=== PATIENT | female | born 1980 | race Two or more races ===

== ENCOUNTER → 2016-08-05 | Outpatient (CLI) | payer OTHER ==
--- NOTE | 2016-08-05 16:17 | KCIC ---
PROCEDURE Cervical spine radiographs HISTORY Worsening neck pain COMPARISON None FINDINGS Two views of the neck utilizing soft tissue protocol are submitted. Cervical vertebral body stature and AP alignment are maintained. There are multiple clips of the inferior neck bilaterally. There is reversal of the lordotic curvature. Prevertebral soft tissue distance can be considered within normal limits. Epiglottis is somewhat poorly delineated on this exam. IMPRESSION Epiglottis is somewhat poorly delineated on this exam for accurate evaluation. There is nonspecific reversal of the lordotic curvature, could be associated with spasm. Electronically signed by: Sundar Royal MD (August 05, 2016 16:16:14)
== END | disposition home or self-care (01) ==
LOC: KCIC 14:35
PROVIDERS: ATTEND Hospitalist
DX: M54.2 Cervicalgia (principal)
CPT/HCPCS: 70360

== ENCOUNTER 2016-10-19 22:04 | Observation (INO) | payer OTHER ==
[~2016-10-19] VITALS: Ht 157.5 cm; Wt 75.3 kg
--- NOTE | 2016-10-19 22:19 | PHYS DOC ---
Past Medical History Additional Past Medical Histor: Thyroid disease;prior suicide attempt Past Surgical History: Cholecystectomy, Tonsillectomy Additional Past Surgical Histo: Thyroidectomy; eye surgery Smoking: Cigarettes Alcohol Use: Heavy Social History Narrative: lives alone Adult General HPI HPI Patient is a 36 year old female who presents with suicidal ideation, attempt and overdose. She took 5 ambien at approx 2030 PM and 3 shots of vodka (4 oz each). Prior suicide attempts. She admits to being depressed. LMP was yesterday. No recent illness or injury. She is followed by DR Russ. Review of Systems Review of Systems PATIENT NOT ANSWERING Physical Exam Physical Exam Constitutional: Well developed, well nourished, no acute distress, non-toxic appearance. Sedated but easily arousable HENT: Normocephalic, atraumatic, bilateral external ears normal, oropharynx moist, no oral exudates, nose normal. Eyes: PERRLA, EOMI, conjunctiva normal, no discharge. Neck: Normal range of motion, no tenderness, supple, no stridor. Cardiovascular:Heart rate regular rhythm, no murmur Lungs & Thorax: Bilateral breath sounds clear to auscultation Abdomen: Bowel sounds normal, soft, no tenderness, no masses, no pulsatile masses. Skin: Warm, dry, no erythema, no rash. Back: No tenderness, no CVA tenderness. Extremities: No tenderness, no cyanosis, no clubbing, ROM intact, no edema. Neurologic: Alert and oriented X 3; sedated but easily arousable, normal motor function, normal sensory function, no focal deficits noted. Psychologic: depressed Current Patient Data Vital Signs Vital Signs Date Time Temp Pulse Resp B/P (MAP) Pulse Ox O2 Delivery O2 Flow Rate FiO2 10/19/16 22:05 98.9 99 20 143/99 (114) 99 Room Air 98.9 Lab Values Laboratory Tests Test 10/19/16 21:46 10/19/16 22:28 10/19/16 22:34 POC Urine HCG, Qualitative Hcg negative (Negative) White Blood Count 9.5 x10^3/uL (4.0-11.0) Red Blood Count 4.03 x10^6/uL (3.50-5.40) Hemoglobin 12.4 g/dL (12.0-15.5) Hematocrit 37.0 % (36.0-47.0) Mean Corpuscular Volume 92 fL (79-100) Mean Corpuscular Hemoglobin 31 pg (25-35) Mean Corpuscular Hemoglobin Concent 34 g/dL (31-37) Red Cell Distribution Width 14.1 % (11.5-14.5) Platelet Count 322 x10^3/uL (140-400) Neutrophils (%) (Auto) 51 % (31-73) Lymphocytes (%) (Auto) 38 % (24-48) Monocytes (%) (Auto) 6 % (0-9) Eosinophils (%) (Auto) 3 % (0-3) Basophils (%) (Auto) 1 % (0-3) Neutrophils # (Auto) 4.9 x10^3uL (1.8-7.7) Lymphocytes # (Auto) 3.6 x10^3/uL (1.0-4.8) Monocytes # (Auto) 0.6 x10^3/uL (0.0-1.1) Eosinophils # (Auto) 0.3 x10^3/uL (0.0-0.7) Basophils # (Auto) 0.1 x10^3/uL (0.0-0.2) Sodium Level 147 mmol/L (136-145) H Potassium Level 3.0 mmol/L (3.5-5.1) L Chloride Level 110 mmol/L (98-107) H Carbon Dioxide Level 26 mmol/L (21-32) Anion Gap 11 (6-14) Blood Urea Nitrogen 13 mg/dL (7-20) Creatinine 0.7 mg/dL (0.6-1.0) Estimated GFR (Cockcroft-Gault) 95.2 BUN/Creatinine Ratio 19 (6-20) Glucose Level 101 mg/dL (70-99) H Calcium Level 8.3 mg/dL (8.5-10.1) L Total Bilirubin 0.1 mg/dL (0.2-1.0) L Aspartate Amino Transferase (AST) 14 U/L (15-37) L Alanine Aminotransferase (ALT) 19 U/L (14-59) Alkaline Phosphatase 114 U/L (46-116) Total Protein 7.1 g/dL (6.4-8.2) Albumin 3.6 g/dL (3.4-5.0) Albumin/Globulin Ratio 1.0 (1.0-1.7) Salicylates Level < 2.8 mg/dL (2.8-20.0) L Salicylate Last Dose Date Unknown Salicylate Last Dose Time Unknown Acetaminophen Level 3.60 mcg/ml (10-30) L Acetaminophen Last Dose Date Unknown Acetaminophen Last Dose Time Unknown Ethyl Alcohol Level 228 mg/dL (0-10) H Urine Collection Type Unknown Urine Color Yellow Urine Clarity Clear Urine pH 6.5 Urine Specific [place] 1.010 Urine Protein Negative mg/dL (NEG-TRACE) Urine Glucose (UA) Negative mg/dL (NEG) Urine Ketones (Stick) Negative mg/dL (NEG) Urine Blood Small (NEG) Urine Nitrite Negative (NEG) Urine Bilirubin Negative (NEG) Urine Urobilinogen Dipstick 0.2 mg/dL (0.2 mg/dL) Urine Leukocyte Esterase Negative (NEG) Urine RBC 3-5 /HPF (0-2) Urine WBC 1-4 /HPF (0-4) Urine Squamous Epithelial Cells Mod /LPF Urine Bacteria Few /HPF (0-FEW) Urine Opiates Screen Pos (NEG) Urine Methadone Screen Neg (NEG) Urine Barbiturates Neg (NEG) Urine Phencyclidine Screen Neg (NEG) Urine Amphetamine/Methamphetamine Neg (NEG) Urine Benzodiazepines Screen Neg (NEG) Urine Cocaine Screen Neg (NEG) Urine Cannabinoids Screen Neg (NEG) Urine Ethyl Alcohol Pos (NEG) Laboratory Tests 10/19/16 22:28 Laboratory Tests 10/19/16 22:28 EKG EKG EKG interpreted by myself. Normal sinus rhythm, heart rate 91. Increased and the QT interval. No ST elevation. Nonspecific ST changes. No Prior EKG to compare this to Course & Med Decision Making Course & Med Decision Making Pertinent Labs and Imaging studies reviewed. (See chart for details) Evaluated patient. She is too impaired for psychiatric assessment and transfer to psychiatric facility at this time due to the ambien and ethanol use. She will need monitoring tonight. She is managing airway; very sedated but easily awakens. Called hospitalist at 2215 PM (Dr Kumar) for admission. Will need 1:1 observation Dragon Disclaimer Dragon Disclaimer This electronic medical record was generated, in whole or in part, using a voice recognition dictation system. Departure Departure Impression: Primary Impression: Overdose Additional Impressions: Toxic effect of ethanol, intentional self-harm, initial encounter Overdose of benzodiazepine Suicidal ideation Disposition: ADMITTED INPATIENT Condition: STABLE Referrals: DANIEL POWERS (PCP) Problem Qualifiers VILMA PONCE MD Oct 19, 2016 22:19
[2016-10-19 22:57] LABS: BASO # 0.1 x10^3/uL (0.0-0.2); BASO % 1 % (0-3); EOS % 3 % (0-3); HEMOGLOBIN 12.4 g/dL (12.0-15.5); LYMPH # 3.6 x10^3/uL (1.0-4.8); LYMPH % 38 % (24-48); MEAN CORPUSCULAR HEMOGLOBIN 31 pg (25-35); MEAN CORPUSCULAR HGB CONC 34 g/dL (31-37); MEAN CORPUSCULAR VOLUME 92 fL (79-100); MONO % 6 % (0-9); NEUT % 51 % (31-73); PLATELET COUNT 322 x10^3/uL (140-400); RED BLOOD COUNT 4.03 x10^6/uL (3.50-5.40); RED CELL DISTRIBUTION WIDTH 14.1 % (11.5-14.5); WHITE BLOOD COUNT 9.5 x10^3/uL (4.0-11.0)
[2016-10-19 22:57] LABS: BILIRUBIN,URINE NEGATIVE (NEG); GLUCOSE,URINE NEGATIVE (NEG); NITRITE,URINE NEGATIVE (NEG); PH,URINE 6.5; PROTEIN,URINE NEGATIVE (NEG-TRACE); UROBILINOGEN,URINE 0.2 mg/dL (0.2 mg/dL)
[2016-10-19] MEDS ORDERED: ONDANSETRON PF 4 MG/2 ML VIAL. IV ONE (23:00)
[2016-10-19] MEDS ORDERED: IV NORMAL SALINE 1000ML BAG 1,000 ML IV SCH (23:00)
[2016-10-19] MEDS ORDERED: ONDANSETRON PF 4 MG/2 ML VIAL. IV PRN (23:00)
[2016-10-19 23:03] LABS: BARBITURATES NEG (NEG); BENZODIAZEPINES NEG (NEG); CANNABINOIDS NEG (NEG); COCAINE NEG (NEG); METHADONE NEG (NEG); OPIATES POS (NEG); PHENCYCLIDINE NEG (NEG)
[2016-10-19 23:09] LABS: ETHANOL 228 mg/dL (0-10)
[2016-10-19 23:11] LABS: ALBUMIN 3.6 g/dL (3.4-5.0); CALCIUM 8.3 mg/dL (8.5-10.1); CREATININE 0.7 mg/dL (0.6-1.0); GFR 95.2; TOTAL BILIRUBIN 0.1 mg/dL (0.2-1.0); TOTAL PROTEIN 7.1 g/dL (6.4-8.2)
[2016-10-19 23:13] LABS: BACTERIA,URINE FEW /HPF (0-FEW)
[2016-10-19 23:14] LABS: SQUAMOUS EPITHELIAL CELL,UR MOD /LPF
[2016-10-20 03:41] VITALS: BP 121/84
[2016-10-20] MEDS ORDERED: SERT100T PO (05:02)
[2016-10-20] MEDS ORDERED: ZOLP5TAB5 PO (05:02)
[2016-10-20] MEDS ORDERED: LEVO200T5 PO (05:02)
[2016-10-20] MEDS ORDERED: TOPI25TA7 PO (05:02)
[2016-10-20] MEDS ORDERED: PRED-220 PO (05:02)
--- NOTE | 2016-10-20 05:52 | ACF ---
Admission Forms Criteria DRUG INGESTION OR OVERDOSE Clinical Indications for Admission to Inpatient Care ( Place 'X' for any and all applicable criteria): Admission is indicated for severe toxicity as indicated by ANY ONE of the following(1)(2)(3)(4)(5)(6): [X ]I. Inpatient admission required rather than observation care (Also use Drug Ingestion or Overdose: Observation Care guideline as appropriate) because of ANY ONE of the following: [ ]a) Altered mental status that is severe or persistent [ ]b) Clinical finding (eg, metabolic acidosis, hypoglycemia, bradycardia) that is severe or persistent [ ]c) Toxic drug level that is persistent [X ]d) Psychiatric risk status not acceptable for outpatient management [ ]e) Continuous intravenous infusion of anticoagulation, platelet inhibitor, vasoactive, or antiarrhythmic medication (15)(16) [ ]f) Other condition, treatment or monitoring requiring inpatient admission [ ]II. Respiratory abnormalities [ ]III. Specific finding indicating severe and likely prolonged drug toxicity [ ]IV. Hemodynamic instability [ ]V. Dangerous arrhythmia [ ]. Hypertension requiring inpatient treatment Extended stay beyond goal length of stay may be needed for (4): [ ]a) Neurologic or respiratory compromise [ ]b) Hemodynamic instability [ ]c) Persistent toxic drug levels (25) [ ]d) Severe drug toxicities or complications [ ]e) Ongoing antidote treatment (eg, acetaminophen overdose)(5) [ ]f) Older patients(65 years or older) The original [employer] content created by [employer] has been revised. The portions of the content which have been revised are identified through the use of italic text or in bold, and [facility] has neither reviewed nor approved the modified material. All other unmodified content is copyright [employer] Please see references footnoted in the original [employer] edition 2016 Admission Criteria Met?: Yes KATHERIN MARTINS Oct 20, 2016 05:52
[2016-10-20] MEDS ORDERED: ALBUTEROL SULFATE 2.5 MG/3 ML NEBU. NEB PRN (06:45)
[2016-10-20] MEDS ORDERED: ACETAMINOPHEN 325 MG TABLET. PO PRN (06:45)
[2016-10-20] MEDS ORDERED: HYDROcodone/APAP 5/325MG 1 TAB TABLET PO PRN (06:45)
[2016-10-20] MEDS ORDERED: ONDANSETRON PF 4 MG/2 ML VIAL. IV PRN (06:45)
[2016-10-20] MEDS ORDERED: hydrALAZINE 20 MG/ML VIAL. IVP PRN (06:45)
[2016-10-20 07:00] VITALS: BP 152/104
[2016-10-20] MEDS ORDERED: IV NORMAL SALINE 1000ML BAG 1,000 ML IV ONE (07:00)
--- NOTE | 2016-10-20 07:22 | EKG ---
[facility] [address] [place] [address] Test Date: 2016-10-19 Test Time: 22:41:26 Pat Name: DEVIN MENA Department: Room: Gender: F Brick Wheeler: : 1980 Requested By: VILMA PONCE Order Number: [id number] Reading MD: Measurements Intervals [place] Rate: 91 P: 37 WA: 148 QRS: 74 QRSD: 92 T: 43 QT: 420 QTc: 519 Interpretive Statements SINUS RHYTHM PROLONGED QT NO SPECIFIC ECG ABNORMALITIES RI6.01 No previous ECG available for comparison
[2016-10-20] MEDS ORDERED: POTASSIUM CHLORIDE 20 MEQ TABLET.ER. PO ONE ×2 (09:15→12:00)
--- NOTE | 2016-10-20 09:16 | PDOC1 ---
History and Physical Date of Admission Date of Admission DATE: 10/20/16 TIME: 09:09 Identification/Chief Complaint Chief Complaint suicide attempt, intoxicated Problems: Source Source: Chart review, Patient History of Present Illness History of Present Illness Ms. Frederick, is a 36 year old female who presents with suicidal ideation, attempt and overdose. She this AM tells me "I just wanted to sleep" when I asked if she wanted to "sleep forever" she did not answer. reports of 12 oz vodka and 5 ambien, but her EtOH level would imply more EtOH than that for her size. She complains of neck and jaw and low back pain that is chronic, and disallows her to sleep. Prior suicide attempts reported in ER, she denies this to me now. She admits to being depressed. Past Medical History Cardiovascular: No pertinent hx Pulmonary: No pertinent hx Psych: Anxiety, Addictions, Depression Musculoskeletal: low back pain Family History Family History: No Significant Social History Smoke: No ALCOHOL: heavy Current Problem List Problem List Problems Medical Problems: (1) Overdose Status: Acute (2) Overdose of benzodiazepine Status: Acute (3) Suicidal ideation Status: Acute (4) Toxic effect of ethanol, intentional self-harm, initial encounter Status: Acute Problems: Current Medications Current Medications Current Medications Ondansetron HCl (Zofran) 4 mg 1X ONCE IV Last administered on 10/20/16 00:26 ; Start 10/19/16 at 23:00; Stop 10/19/16 at 23:01; Status DC Sodium Chloride 1,000 ml @ 1,000 mls/hr Q1H IV Last administered on 10/20/16 00:24; Start 10/19/16 at 23:00; Stop 10/19/16 at 23:59; Status DC Ondansetron HCl (Zofran) 4 mg PRN Q8HRS PRN IV NAUSEA/VOMITING; Start 10/19/16 at 23:00; Stop 10/20/16 at 07:00; Status DC Sodium Chloride 1,000 ml @ 75 mls/hr 1X ONCE IV Last administered on 07:15; Start 10/20/16 at 07:00; Stop 10/20/16 at 20:19 Acetaminophen (Tylenol) 325 mg PRN Q6HRS PRN PO MILD PAIN / TEMP; Start at 06:45 Acetaminophen/ Hydrocodone Bitart (Lortab 5/325) 1 tab PRN Q6HRS PRN PO MODERATE TO SEVERE PAIN; Start 10/20/16 at 06:45 Hydralazine HCl (Apresoline) 10 mg PRN Q4HRS PRN IVP ELEVATED BP, SEE COMMENTS ; Start 10/20/16 at 06:45 Ondansetron HCl (Zofran) 4 mg PRN Q8HRS PRN IV NAUSEA/VOMITING; Start 10/20/16 at 06:45 Albuterol Sulfate (Ventolin Neb Soln) 2.5 mg PRN Q4HRS PRN NEB SHORTNESS OF BREATH; Start 10/20/16 at 06:45 Active Scripts Active Reported Topiramate 25 Mg Tablet 1 Tab PO DAILY Levothyroxine Sodium 200 Mcg Tablet 225 Mcg PO DAILYAC Zoloft (Sertraline Hcl) 100 Mg Tablet 1 Tab PO DAILY Prednisone 10 Mg Tablet 10 Mg PO DAILYWBKFT 3 Days Take 4 tablets by mouth daily for 3 days, then taper down by 1 tablet every 3 days Zolpidem Tartrate 5 Mg Tablet 1 Tab PO QHS Allergies Allergies: Coded Allergies: NSAIDS (Non-Steroidal Anti-Inflamma (Verified Allergy, Intermediate, ) Penicillins (Verified Allergy, Intermediate, 10/19/16) ROS General: No: Chills, Night Sweats, Fatigue, Malaise, Appetite, Other PSYCHOLOGICAL ROS: YES: Depression, Irritablity, Sleep disturbances, No: Anxiety, Behavioral Disorder, Concentration difficultie, Decreased libido , Disorientation, Hallucinations, Hostility, Memory difficulties, Mood Swings, Obsessive thoughts, Other Eyes: No Blurry vision, No Decreased vision, No Double vision, No Dry eyes, No Excessive tearing, No Eye Pain, No Itchy Eyes, No Loss of vision, No Photophobia , No Scotomata, No Uses contacts, No Uses glasses, No Other HEENT: YES: Heacaches, No: Visual Changes, Hearing change, Nasal congestion, Nasal discharge, Oral lesions, Sinus pain, Sore Throat, Epistaxis, Sneezing, Snoring, Tinnitus, Vertigo, Vocal changes, Other Respiratory: No: Cough, Hemoptysis, Orthopnea, Pleuritic Pain, Shortness of breath, SOB with excertion, Sputum Changes, Stridor, Tachypnea, Wheezing, Other Cardiovascular: No Chest Pain, No Palpitations, No Orthopnea, No Paroxysmal Noc. Dyspnea, No Edema, No Lt Headedness, No Other Gastrointestinal: Yes Nausea, No Vomiting, No Abdominal Pain, No Diarrhea, No Constipation, No Melena, No Hematochezia, No Other Genitourinary: No Dysuria, No Frequency, No Incontinence, No Hematuria, No Retention, No Discharge, No Urgency, No Pain, No Flank Pain, No Other, No , No , No , No , No , No , No Musculoskeletal: Yes Joint Pain, Yes Joint Stiffness, Yes Pain In: (back pain, neck pain) Neurological: No Behavorial Changes, No Bowel/Bladder ControlChng, No Confusion , No Dizziness, No Gait Disturbance, No Headaches, No Impaired Coord/balance, No Memory Loss, No Numbness/Tingling, No Seizures, No Speech Problems, No Tremors, No Visual Changes, No Weakness, No Other Skin: No Dry Skin, No Eczema, No Hair Changes, No Lumps, No Mole Changes, No Mottling, No Nail Changes, No Pruritus, No Rash, No Skin Lesion Changes, No Other, No Acne Physical Exam General: Alert, Oriented X3, Cooperative, No acute distress HEENT: EOMI, Mucous membr. moist/pink Lungs: Normal air movement Heart: no gallops, no murmurs Extremities: No clubbing, No edema Skin: No rashes, No significant lesion Neuro: Normal speech Psych/Mental Status: Mental status NL, Mood NL Vitals Vitals Vital Signs Date Time Temp Pulse Resp B/P (MAP) Pulse Ox O2 Delivery O2 Flow Rate FiO2 10/20/16 07:00 98.1 92 20 152/104 (120) 98 Room Air 98.1 Labs Labs Laboratory Tests Test 10/19/16 21:46 10/19/16 22:28 10/19/16 22:34 Bedside Urine HCG, Qualitative Hcg negative (Negative) White Blood Count 9.5 x10^3/uL (4.0-11.0) Red Blood Count 4.03 x10^6/uL (3.50-5.40) Hemoglobin 12.4 g/dL (12.0-15.5) Hematocrit 37.0 % (36.0-47.0) Mean Corpuscular Volume 92 fL (79-100) Mean Corpuscular Hemoglobin 31 pg (25-35) Mean Corpuscular Hemoglobin Concent 34 g/dL (31-37) Red Cell Distribution Width 14.1 % (11.5-14.5) Platelet Count 322 x10^3/uL (140-400) Neutrophils (%) (Auto) 51 % (31-73) Lymphocytes (%) (Auto) 38 % (24-48) Monocytes (%) (Auto) 6 % (0-9) Eosinophils (%) (Auto) 3 % (0-3) Basophils (%) (Auto) 1 % (0-3) Neutrophils # (Auto) 4.9 x10^3uL (1.8-7.7) Lymphocytes # (Auto) 3.6 x10^3/uL (1.0-4.8) Monocytes # (Auto) 0.6 x10^3/uL (0.0-1.1) Eosinophils # (Auto) 0.3 x10^3/uL (0.0-0.7) Basophils # (Auto) 0.1 x10^3/uL (0.0-0.2) Sodium Level 147 mmol/L (136-145) Potassium Level 3.0 mmol/L (3.5-5.1) Chloride Level 110 mmol/L (98-107) Carbon Dioxide Level 26 mmol/L (21-32) Anion Gap 11 (6-14) Blood Urea Nitrogen 13 mg/dL (7-20) Creatinine 0.7 mg/dL (0.6-1.0) Estimated GFR (Cockcroft-Gault) 95.2 BUN/Creatinine Ratio 19 (6-20) Glucose Level 101 mg/dL (70-99) Calcium Level 8.3 mg/dL (8.5-10.1) Total Bilirubin 0.1 mg/dL (0.2-1.0) Aspartate Amino Transf (AST/SGOT) 14 U/L (15-37) Alanine Aminotransferase (ALT/SGPT) 19 U/L (14-59) Alkaline Phosphatase 114 U/L (46-116) Total Protein 7.1 g/dL (6.4-8.2) Albumin 3.6 g/dL (3.4-5.0) Albumin/Globulin Ratio 1.0 (1.0-1.7) Salicylates Level < 2.8 mg/dL (2.8-20.0) Salicylate Last Dose Date Unknown Salicylate Last Dose Time Unknown Acetaminophen Level 3.60 mcg/ml (10-30) Acetaminophen Last Dose Date Unknown Acetaminophen Last Dose Time Unknown Ethyl Alcohol Level 228 mg/dL (0-10) Urine Collection Type Unknown Urine Color Yellow Urine Clarity Clear Urine pH 6.5 Urine Specific [place] 1.010 Urine Protein Negative mg/dL (NEG-TRACE) Urine Glucose (UA) Negative mg/dL (NEG) Urine Ketones (Stick) Negative mg/dL (NEG) Urine Blood Small (NEG) Urine Nitrite Negative (NEG) Urine Bilirubin Negative (NEG) Urine Urobilinogen Dipstick 0.2 mg/dL (0.2 mg/dL) Urine Leukocyte Esterase Negative (NEG) Urine RBC 3-5 /HPF (0-2) Urine WBC 1-4 /HPF (0-4) Urine Squamous Epithelial Cells Mod /LPF Urine Bacteria Few /HPF (0-FEW) Urine Opiates Screen Pos (NEG) Urine Methadone Screen Neg (NEG) Urine Barbiturates Neg (NEG) Urine Phencyclidine Screen Neg (NEG) Urine Amphetamine/Methamphetamine Neg (NEG) Urine Benzodiazepines Screen Neg (NEG) Urine Cocaine Screen Neg (NEG) Urine Cannabinoids Screen Neg (NEG) Urine Ethyl Alcohol Pos (NEG) Laboratory Tests Test 10/19/16 21:46 10/19/16 22:28 10/19/16 22:34 Bedside Urine HCG, Qualitative Hcg negative (Negative) White Blood Count 9.5 x10^3/uL (4.0-11.0) Red Blood Count 4.03 x10^6/uL (3.50-5.40) Hemoglobin 12.4 g/dL (12.0-15.5) Hematocrit 37.0 % (36.0-47.0) Mean Corpuscular Volume 92 fL (79-100) Mean Corpuscular Hemoglobin 31 pg (25-35) Mean Corpuscular Hemoglobin Concent 34 g/dL (31-37) Red Cell Distribution Width 14.1 % (11.5-14.5) Platelet Count 322 x10^3/uL (140-400) Neutrophils (%) (Auto) 51 % (31-73) Lymphocytes (%) (Auto) 38 % (24-48) Monocytes (%) (Auto) 6 % (0-9) Eosinophils (%) (Auto) 3 % (0-3) Basophils (%) (Auto) 1 % (0-3) Neutrophils # (Auto) 4.9 x10^3uL (1.8-7.7) Lymphocytes # (Auto) 3.6 x10^3/uL (1.0-4.8) Monocytes # (Auto) 0.6 x10^3/uL (0.0-1.1) Eosinophils # (Auto) 0.3 x10^3/uL (0.0-0.7) Basophils # (Auto) 0.1 x10^3/uL (0.0-0.2) Sodium Level 147 mmol/L (136-145) Potassium Level 3.0 mmol/L (3.5-5.1) Chloride Level 110 mmol/L (98-107) Carbon Dioxide Level 26 mmol/L (21-32) Anion Gap 11 (6-14) Blood Urea Nitrogen 13 mg/dL (7-20) Creatinine 0.7 mg/dL (0.6-1.0) Estimated GFR (Cockcroft-Gault) 95.2 BUN/Creatinine Ratio 19 (6-20) Glucose Level 101 mg/dL (70-99) Calcium Level 8.3 mg/dL (8.5-10.1) Total Bilirubin 0.1 mg/dL (0.2-1.0) Aspartate Amino Transf (AST/SGOT) 14 U/L (15-37) Alanine Aminotransferase (ALT/SGPT) 19 U/L (14-59) Alkaline Phosphatase 114 U/L (46-116) Total Protein 7.1 g/dL (6.4-8.2) Albumin 3.6 g/dL (3.4-5.0) Albumin/Globulin Ratio 1.0 (1.0-1.7) Salicylates Level < 2.8 mg/dL (2.8-20.0) Salicylate Last Dose Date Unknown Salicylate Last Dose Time Unknown Acetaminophen Level 3.60 mcg/ml (10-30) Acetaminophen Last Dose Date Unknown Acetaminophen Last Dose Time Unknown Ethyl Alcohol Level 228 mg/dL (0-10) Urine Collection Type Unknown Urine Color Yellow Urine Clarity Clear Urine pH 6.5 Urine Specific [place] 1.010 Urine Protein Negative mg/dL (NEG-TRACE) Urine Glucose (UA) Negative mg/dL (NEG) Urine Ketones (Stick) Negative mg/dL (NEG) Urine Blood Small (NEG) Urine Nitrite Negative (NEG) Urine Bilirubin Negative (NEG) Urine Urobilinogen Dipstick 0.2 mg/dL (0.2 mg/dL) Urine Leukocyte Esterase Negative (NEG) Urine RBC 3-5 /HPF (0-2) Urine WBC 1-4 /HPF (0-4) Urine Squamous Epithelial Cells Mod /LPF Urine Bacteria Few /HPF (0-FEW) Urine Opiates Screen Pos (NEG) Urine Methadone Screen Neg (NEG) Urine Barbiturates Neg (NEG) Urine Phencyclidine Screen Neg (NEG) Urine Amphetamine/Methamphetamine Neg (NEG) Urine Benzodiazepines Screen Neg (NEG) Urine Cocaine Screen Neg (NEG) Urine Cannabinoids Screen Neg (NEG) Urine Ethyl Alcohol Pos (NEG) VTE Prophylaxis Ordered VTE Prophylaxis Devices: No VTE Pharmacological Prophylaxi: No Assessment/Plan Assessment/Plan suicide attempt major depression seek psychiatric care chronic back pain, neck pain, to right jaw pain, consult physiatry EtOH abuse, was intoxicated on admit hypernatremia, hypokalemia, PRESLEY ENNIS MD Oct 20, 2016 09:16
[2016-10-20] MEDS ORDERED: LIDOCAINE (700MG/PATCH) PATCH. TD SCH (09:45)
[2016-10-20] MEDS ORDERED: KETOROLAC TROMETHAMINE 30 MG/ML INJ. IV ONE (09:45)
[2016-10-20] MEDS: CYCLOBENZAPRINE 10 MG TABLET. PO PRN ×2 (09:46→16:46)
[2016-10-20] MEDS ORDERED: MULTIVIT INFUSN,ADULT 4,VIT K 10 ML, FOLIC ACID 1 MG, THIAMINE 100 MG in IV RINGERS,LAC... IV ONE (10:00)
[2016-10-20 11:00] VITALS: BP 138/90
[2016-10-20] MEDS: oxyCODONE/APAP 10/325 1 TAB TABLET PO PRN ×2 (12:21→16:47)
[2016-10-20] MEDS ORDERED: LORazepam 1 MG TABLET PO PRN (14:00)
[2016-10-20 15:00] VITALS: BP 108/60
[2016-10-20] MEDS ORDERED: LEVOTHYROXINE 112 MCG TABLET PO SCH (15:00)
[2016-10-20] MEDS ORDERED: TOPIRAMATE 25 MG TABLET. PO SCH (15:00)
[2016-10-20] MEDS ORDERED: predniSONE 10 MG TABLET PO SCH (15:00)
[2016-10-20] MEDS ORDERED: ZOLPIDEM 5 MG TABLET. PO SCH (21:00)
[2016-10-21] MEDS ORDERED: POTASSIUM CHLORIDE 20 MEQ TABLET.ER. PO SCH (08:00)
[2016-10-21] MEDS ORDERED: SERTRALINE 50 MG TABLET. PO SCH (09:00)
== END 2016-10-20 19:20 | disposition home or self-care (01) ==
LOC: ER 22:04 → ED HOLD 22:35 → 5 NORTH 10-20 02:30
PROVIDERS: ADMIT Internal Medicine; ATTEND Internal Medicine
DX: T42.4X2A Poisoning by benzodiazepines, intentional self-harm, initial encounter (principal); T51.0X2A Toxic effect of ethanol, intentional self-harm, initial encounter; R45.851 Suicidal ideations; G89.29 Other chronic pain; F32.9 Major depressive disorder, single episode, unspecified; F41.9 Anxiety disorder, unspecified; E87.0 Hyperosmolality and hypernatremia; E87.6 Hypokalemia; Y92.89 Other specified places as the place of occurrence of the external cause; Z91.5 Personal history of self-harm; Z87.891 Personal history of nicotine dependence
CPT/HCPCS: 36415; 80053; 80329; 81001; 81025; 85027; 93005; 94250; 94760; 96361; 96365; 96375; 99285; A9153; G0378; G0480; G0481; J2405; J3411; J3490; J7030; J7120; G0379

== ENCOUNTER 2018-04-27 16:53 | Inpatient (IN) | payer SELFPAY ==
[~2018-04-27] VITALS: Ht 170.2 cm; Wt 77.2 kg
[~2018-04-27 16:53] MED LIST: HYDR-2761 PO; LEVO200T5 PO; PRED-220 PO; SERT100T PO; TOPI25TA7 PO; ZOLP5TAB5 PO
[2018-04-27] MEDS ORDERED: MULTIVIT INFUSN,ADULT 4,VIT K 10 ML, THIAMINE INJ 100 MG, FOLIC ACID INJ 1 MG in IV NOR... IV SCH (17:00)
[2018-04-27 17:14] LABS: BASO % 1 % (0-3); EOS # 0.2 x10^3/uL (0.0-0.7); EOS % 3 % (0-3); HEMOGLOBIN 12.8 g/dL (12.0-15.5); LYMPH # 3.4 x10^3/uL (1.0-4.8); LYMPH % 48 % (24-48); MEAN CORPUSCULAR HEMOGLOBIN 29 pg (25-35); MEAN CORPUSCULAR HGB CONC 33 g/dL (31-37); MEAN CORPUSCULAR VOLUME 89 fL (79-100); MONO # 0.5 x10^3/uL (0.0-1.1); MONO % 8 % (0-9); NEUT # 2.8 x10^3uL (1.8-7.7); NEUT % 40 % (31-73); PLATELET COUNT 240 x10^3/uL (140-400); RED CELL DISTRIBUTION WIDTH 15.5 % (11.5-14.5)
[2018-04-27 17:23] LABS: PROTHROMBIN TIME PATIENT 12.8 SEC (11.7-14.0)
[2018-04-27 17:28] LABS: ALBUMIN 3.5 g/dL (3.4-5.0); CALCIUM 8.3 mg/dL (8.5-10.1); CREATININE 0.9 mg/dL (0.6-1.0); GFR 70.5; MAGNESIUM 2.3 mg/dL (1.8-2.4); TOTAL BILIRUBIN 0.4 mg/dL (0.2-1.0)
[2018-04-27] MEDS ORDERED: IV NORMAL SALINE 1000ML BAG 1,000 ML IV ONE ×2 (17:30→18:15)
[2018-04-27 17:31] LABS: POTASSIUM 2.7 mmol/L (3.5-5.1)
[2018-04-27 17:38] LABS: BILIRUBIN,URINE NEGATIVE (NEG); CLARITY,URINE CLEAR; COLOR,URINE YELLOW; NITRITE,URINE NEGATIVE (NEG); PH,URINE 6.5; PROTEIN,URINE NEGATIVE (NEG-TRACE); UROBILINOGEN,URINE 0.2 mg/dL (0.2 mg/dL)
[2018-04-27 17:38] LABS: ETHANOL 362 mg/dL (0-10); SALIC < 2.8 mg/dL (2.8-20.0)
[2018-04-27 17:39] LABS: ACETAMIN < 2 mcg/ml (10-30)
[2018-04-27 17:51] LABS: AMORPHOUS SEDIMENT,UR PRESENT /HPF; BACTERIA,URINE 0 /HPF (0-FEW); RBC,URINE 0 /HPF (0-2); SQUAMOUS EPITHELIAL CELL,UR OCC /LPF; WBC,URINE OCC /HPF (0-4)
[2018-04-27 17:53] LABS: AMPHETAMINE/METHAMPHETAMINE NEG (NEG); BARBITURATES NEG (NEG); BENZODIAZEPINES POS (NEG); CANNABINOIDS NEG (NEG); COCAINE NEG (NEG); METHADONE NEG (NEG); OPIATES NEG (NEG); PHENCYCLIDINE NEG (NEG)
[2018-04-27] MEDS: POTASSIUM CHLORIDE 10MEQ 100 ML IV SCH ×4 (17:58→23:00)
--- NOTE | 2018-04-27 18:26 | PHYS DOC ---
Past Medical History Past Medical History: Anxiety, Depression, Hypothyroid, Other Additional Past Medical Histor: Thyroid disease;prior suicide attempt, PTSD Past Surgical History: Cholecystectomy, Tonsillectomy Additional Past Surgical Histo: Thyroidectomy; eye surgery, GASTRIC SLEEVE Alcohol Use: Heavy Drug Use: Benzodiazepine Adult General Chief Complaint Chief Complaint: OVERDOSE HPI HPI Patient is a 38 year old female who presents with suicide attempt. Patient called EMS/911 after taking she reports 20 Seroquel 300 mg tablets as well as drinking an unknown amount of alcohol. EMS brought the pill bottle with her and there were 12 tablets missing from the bottle in the emergency department. Patient's history is limited due to decreased mental status.[] Review of Systems Review of Systems Unable to obtain due to decreased mental status All other systems were reviewed and found to be within normal limits, except as documented in this note. Current Medications Current Medications Current Medications Medications (Trade) Dose Ordered Sig/Mauricio Start Time Stop Time Status Last Admin Dose Admin Multivitamins 10 ml/Thiamine HCl 100 mg/Folic Acid 1 mg/Sodium Chloride 1,011.2 ml @ 1,000 mls/ hr Q1H 04/27/18 17:00 04/27/18 17:34 DC 04/27/18 17:32 1,000 MLS/HR Potassium Chloride/Water 100 ml @ 100 mls/hr Q1H 04/27/18 17:45 04/27/18 21:44 04/27/18 17:58 100 MLS/HR Sodium Chloride 1,000 ml @ 125 mls/hr 1X ONCE 04/27/18 18:15 04/28/18 02:14 04/27/18 18:14 125 MLS/HR Allergies Allergies Allergies Coded Allergies Type Severity Reaction Last Updated Verified NSAIDS (Non-Steroidal Anti-Inflamma Allergy Intermediate 10/19/16 Yes Penicillins Allergy Intermediate 10/19/16 Yes Physical Exam Physical Exam Constitutional: Well developed, well nourished, decreased responsiveness, protecting her airway. [] HENT: Normocephalic, atraumatic, bilateral external ears normal, oropharynx moist, no oral exudates, nose normal. [] Eyes: PERRLA, EOMI, conjunctiva normal, no discharge. [] Neck: Normal range of motion, no tenderness, supple, no stridor. [] Cardiovascular:Heart rate is tachycardic with a regular rhythm, no murmur [] Lungs & Thorax: Bilateral breath sounds clear to auscultation [] Abdomen: Bowel sounds normal, soft, no tenderness, no masses, no pulsatile masses. [] Skin: Warm, dry, no erythema, no rash. [] Back: No tenderness, no CVA tenderness. [] Extremities: No tenderness, no cyanosis, no clubbing, ROM intact, no edema. [] Neurologic: Sleepy, moves all 4 extremities. [] Psychologic: Affect flat, judgment poor Current Patient Data Vital Signs Vital Signs Date Time Temp Pulse Resp B/P (MAP) Pulse Ox O2 Delivery O2 Flow Rate FiO2 04/27/18 18:27 99 16 106/68 (81) 100 Room Air 04/27/18 17:04 96.5 96.5 Lab Values Laboratory Tests Test 04/27/18 17:00 04/27/18 17:20 04/27/18 17:32 White Blood Count 7.0 x10^3/uL (4.0-11.0) Red Blood Count 4.40 x10^6/uL (3.50-5.40) Hemoglobin 12.8 g/dL (12.0-15.5) Hematocrit 39.0 % (36.0-47.0) Mean Corpuscular Volume 89 fL (79-100) Mean Corpuscular Hemoglobin 29 pg (25-35) Mean Corpuscular Hemoglobin Concent 33 g/dL (31-37) Red Cell Distribution Width 15.5 % (11.5-14.5) H Platelet Count 240 x10^3/uL (140-400) Neutrophils (%) (Auto) 40 % (31-73) Lymphocytes (%) (Auto) 48 % (24-48) Monocytes (%) (Auto) 8 % (0-9) Eosinophils (%) (Auto) 3 % (0-3) Basophils (%) (Auto) 1 % (0-3) Neutrophils # (Auto) 2.8 x10^3uL (1.8-7.7) Lymphocytes # (Auto) 3.4 x10^3/uL (1.0-4.8) Monocytes # (Auto) 0.5 x10^3/uL (0.0-1.1) Eosinophils # (Auto) 0.2 x10^3/uL (0.0-0.7) Basophils # (Auto) 0.0 x10^3/uL (0.0-0.2) Prothrombin Time 12.8 SEC (11.7-14.0) Prothrombin Time INR 1.0 (0.8-1.1) Sodium Level 146 mmol/L (136-145) H Potassium Level 2.7 mmol/L (3.5-5.1) *L Chloride Level 106 mmol/L (98-107) Carbon Dioxide Level 24 mmol/L (21-32) Anion Gap 16 (6-14) H Blood Urea Nitrogen 10 mg/dL (7-20) Creatinine 0.9 mg/dL (0.6-1.0) Estimated GFR (Cockcroft-Gault) 70.5 BUN/Creatinine Ratio 11 (6-20) Glucose Level 136 mg/dL (70-99) H Lactic Acid Level 4.2 mmol/L (0.4-2.0) *H Calcium Level 8.3 mg/dL (8.5-10.1) L Magnesium Level 2.3 mg/dL (1.8-2.4) Total Bilirubin 0.4 mg/dL (0.2-1.0) Aspartate Amino Transferase (AST) 54 U/L (15-37) H Alanine Aminotransferase (ALT) 123 U/L (14-59) H Alkaline Phosphatase 110 U/L (46-116) Total Protein 7.0 g/dL (6.4-8.2) Albumin 3.5 g/dL (3.4-5.0) Albumin/Globulin Ratio 1.0 (1.0-1.7) Thyroid Stimulating Hormone (TSH) 2.701 uIU/mL (0.358-3.74) Salicylates Level < 2.8 mg/dL (2.8-20.0) L Salicylate Last Dose Date Unk Salicylate Last Dose Time Unk Acetaminophen Level < 2 mcg/ml (10-30) L Acetaminophen Last Dose Date Unk Acetaminophen Last Dose Time Unk Ethyl Alcohol Level 362 mg/dL (0-10) H Urine Color Yellow Urine Clarity Clear Urine pH 6.5 Urine Specific [place] 1.010 Urine Protein Negative mg/dL (NEG-TRACE) Urine Glucose (UA) Negative mg/dL (NEG) Urine Ketones (Stick) Negative mg/dL (NEG) Urine Blood Negative (NEG) Urine Nitrite Negative (NEG) Urine Bilirubin Negative (NEG) Urine Urobilinogen Dipstick 0.2 mg/dL (0.2 mg/dL) Urine Leukocyte Esterase Negative (NEG) Urine RBC 0 /HPF (0-2) Urine WBC Occ /HPF (0-4) Urine Squamous Epithelial Cells Occ /LPF Urine Amorphous Sediment Present /HPF Urine Bacteria 0 /HPF (0-FEW) Urine Mucus Slight /LPF Urine Opiates Screen Neg (NEG) Urine Methadone Screen Neg (NEG) Urine Barbiturates Neg (NEG) Urine Phencyclidine Screen Neg (NEG) Urine Amphetamine/Methamphetamine Neg (NEG) Urine Benzodiazepines Screen Pos (NEG) Urine Cocaine Screen Neg (NEG) Urine Cannabinoids Screen Neg (NEG) Urine Ethyl Alcohol Pos (NEG) POC Urine HCG, Qualitative Hcg negative (Negative) Laboratory Tests 04/27/18 17:00 Laboratory Tests 04/27/18 17:00 EKG EKG EKG shows a sinus tach at 124 bpm, normal axis, no ST elevation, flipped T waves anteriorly and inferiorly[] Radiology/Procedures Radiology/Procedures [] Course & Med Decision Making Course & Med Decision Making Pertinent Labs and Imaging studies reviewed. (See chart for details) ED course: Patient arrived, was placed in bed, in tolerated exam well. Patient was given 2 L of IV fluid including one of those liters being a "banana bag" due to concerns of alcohol use/abuse. She was noted to be hypokalemic and so potassium supplementation was ordered via the IV along with additional fluids given her elevated lactate. Consultation was made with the hospitalist service for admission. Medical decision making: Patient does not appear to have an elevated QTC despite the Seroquel overdose. However her alcohol is significantly elevated and so do not feel that she would be medically cleared in a timely manner from the emergency department so hospitalist service was consult for admission and they graciously accepted.[] Dragon Disclaimer Dragon Disclaimer This electronic medical record was generated, in whole or in part, using a voice recognition dictation system. Departure Departure Impression: Primary Impression: Overdose Additional Impressions: Suicide attempt Lactic acidosis Hypokalemia Disposition: ADMITTED INPATIENT Admitting Physician: Beatriz Allen Condition: GUARDED Referrals: NO PCP (PCP) Problem Qualifiers Primary Impression: Overdose Encounter type: initial encounter Injury intent: intentional self-harm Qualified Codes: T50.902A - Poisoning by unspecified drugs, medicaments and biological substances, intentional self-harm, initial encounter DENIA SHIPMAN DO Apr 27, 2018 18:26
[2018-04-27] MEDS ORDERED: ONDANSETRON PF 4 MG/2 ML VIAL. IV PRN (19:00)
--- NOTE | 2018-04-27 19:22 | EKG ---
[facility] [address] [place] [address] Test Date: 2018-04-27 Test Time: 17:07:46 Pat Name: DEVIN MENA Department: Room: 536 1 Gender: F Circulation Tender: : 1980 Requested By: DENIA SHIPMAN Order Number: [id number] Reading MD: Gregorio Gamboa MD Measurements Intervals [place] Rate: 123 P: -59 NV: 110 QRS: 75 QRSD: 90 T: -18 QT: 320 QTc: 463 Interpretive Statements SINUS TACHYCARDIA BASELINE ARTIFACT CANNOT RULE OUT LATERAL ISCHEMIA. Electronically Signed On 05-04-2018 9:05:41 STRIPPER APPRENTICE by Gregorio Gamboa MD
--- NOTE | 2018-04-27 19:30 | NUR ---
The patient, DEVIN MENA, 38 y/o, F admitted by APRIL WOODS III, DO, was given written information regarding hospital policies, unit procedures and contact persons. Valuables were checked and left in the nursing station due to patient suicide ideation. Patient has been sleeping since she arrived from ED,therefore she was unable to answer some admission questions. The nurse did the much she could on assessments. .
[2018-04-27 20:00] VITALS: BP 117/85
[2018-04-27 23:00] VITALS: BP 100/64
[2018-04-28] MEDS: IV NORMAL SALINE 1000ML BAG 1,000 ML IV SCH ×4 (01:40→16:24)
[2018-04-28] MEDS ORDERED: LORazepam 1 MG TABLET PO PRN ×2 (02:45)
[2018-04-28 03:00] VITALS: BP 121/70
[2018-04-28 06:43] LABS: BASO % 0 % (0-3); EOS # 0.2 x10^3/uL (0.0-0.7); EOS % 3 % (0-3); HEMATOCRIT 31.3 % (36.0-47.0); HEMOGLOBIN 10.5 g/dL (12.0-15.5); LYMPH # 2.1 x10^3/uL (1.0-4.8); LYMPH % 29 % (24-48); MEAN CORPUSCULAR HEMOGLOBIN 30 pg (25-35); MEAN CORPUSCULAR HGB CONC 34 g/dL (31-37); MEAN CORPUSCULAR VOLUME 89 fL (79-100); MONO # 0.5 x10^3/uL (0.0-1.1); MONO % 7 % (0-9); NEUT # 4.3 x10^3uL (1.8-7.7); NEUT % 61 % (31-73); PLATELET COUNT 200 x10^3/uL (140-400); RED BLOOD COUNT 3.52 x10^6/uL (3.50-5.40); RED CELL DISTRIBUTION WIDTH 15.5 % (11.5-14.5); WHITE BLOOD COUNT 7.1 x10^3/uL (4.0-11.0)
[2018-04-28 07:08] LABS: ALBUMIN 2.7 g/dL (3.4-5.0); ALBUMIN/GLOBULIN RATIO 0.9 (1.0-1.7); CALCIUM 7.6 mg/dL (8.5-10.1); CREATININE 0.6 mg/dL (0.6-1.0); GFR 112.5; POTASSIUM 3.4 mmol/L (3.5-5.1); TOTAL BILIRUBIN 0.6 mg/dL (0.2-1.0); TOTAL PROTEIN 5.8 g/dL (6.4-8.2)
[2018-04-28 07:20] VITALS: BP 131/83
[2018-04-28] MEDS: MULTIVIT INFUSN,ADULT 4,VIT K 10 ML, THIAMINE INJ 100 MG, FOLIC ACID INJ 1 MG in IV NOR... IV SCH (08:20)
[2018-04-28 11:02] VITALS: BP 110/67
--- NOTE | 2018-04-28 12:55 | HP ---
ADMIT DATE: 04/28/2018 CHIEF COMPLAINT: Overdose. HISTORY OF PRESENT ILLNESS: The patient is a pleasant 38-year-old female who took 20 Seroquel. She called 911. She also was drunk. She got to the ER with an alcohol level of above 300. We actually only discovered 12 pills missing, but she states she took 20. Nevertheless, I discussed the case with the ER physician. The patient is very sedated, acting, she is also tachycardic. We have consulted and notified the Poison Control Center. I have agreed to admit the patient. We plan to get her stabilized and then get her to an inpatient psych unit. PAST MEDICAL HISTORY: Depression, anxiety, hypothyroidism, cholecystectomy, tonsillectomy, bipolar, hypothyroidism, eye surgery and gastric sleeve. ALLERGIES: NSAIDS. FAMILY HISTORY: Depression. SOCIAL HISTORY: She does not drink, smoke or take drugs. MEDICATIONS: Reviewed. She is on 4 including Zoloft, Ambien, Synthroid and Keppra. REVIEW OF SYSTEMS: Unable to obtain, the patient is too confused. PHYSICAL EXAMINATION: VITAL SIGNS: Temperature 97, pulse 110, respirations 18, blood pressure 117/85, O2 sat 97% on room air. GENERAL: She is sleeping. She tries to wake her up, but she is very confused. She mumbles a few words and then goes back to sleep. HEART: Tachycardic, S1, S2. LUNGS: Clear. ABDOMEN: Soft. EXTREMITIES: No edema. SKIN: No rash. ENDOCRINE: No thyromegaly. LYMPHATICS: No cervical nodes. HEMATOPOIETIC: No bruising. LABORATORY DATA: Hematology is normal. Electrolytes: Sodium 146, potassium 3.4, chloride 110, bicarbonate 26, BUN 10, creatinine 0.9, glucose 136. Lactic acid 4.2. ASSESSMENT AND PLAN: Ingestion secondary to depression with suicide attempt and incidental finding of hypokalemia and anemia. The patient has been admitted. We are consulting the psychiatric assessment team. Replace her electrolytes. IV fluids. Cardiac monitoring. PROGNOSIS: Guarded. APRIL WOODS DO DR: INDU/phyllis JOB#: [id number] / [id number]
[2018-04-28 15:06] VITALS: BP 137/89
--- NOTE | 2018-04-28 15:54 | NUR ---
ESTELA phoned the PAT team for SI assessment. Efra will come in to see pt tomorrow morning. Addendum: 04/29/18 at 1244 by HILDA PALMER Pt was evaluated by Efra. Pt will f/u with [facility] services. Pt is not SI and 1:1 can be discontinued. THANH ARCHER.
[2018-04-28 19:00] VITALS: BP 132/92
[2018-04-28 22:59] VITALS: BP 143/95
[2018-04-29 03:00] VITALS: BP 131/85
[2018-04-29 07:00] VITALS: BP 121/80
[2018-04-29] MEDS: MULTIVIT INFUSN,ADULT 4,VIT K 10 ML, THIAMINE INJ 100 MG, FOLIC ACID INJ 1 MG in IV NOR... IV SCH (08:31)
[2018-04-29] MEDS ORDERED: HYDROcodone/APAP 5/325MG 1 TAB TABLET PO PRN (10:30)
[2018-04-29] MEDS ORDERED: HALOPERIDOL LACTATE 5 MG/ML VIAL. IVP ONE (10:30)
[2018-04-29] MEDS ORDERED: HALOPERIDOL LACTATE 5 MG/ML VIAL. IVP PRN (10:30)
[2018-04-29 11:05] VITALS: BP 128/87
--- NOTE | 2018-04-29 12:33 | PDOC ---
PROGRESS NOTES Chief Complaint Chief Complaint SI, OP on seroquel, alcohol intoxication History of Present Illness History of Present Illness Patient was seen and examined at the bedside this morning. She is doing well, not endorsing SI anymore. She has a good appetite and ate her breakfast this morning. She is prepared to discharge and requires a cab pass for transportation. Vitals Vitals Vital Signs Date Time Temp Pulse Resp B/P (MAP) Pulse Ox O2 Delivery O2 Flow Rate FiO2 04/29/18 11:05 97.9 97 16 128/87 (101) 93 Room Air 97.9 Physical Exam General: Alert, Oriented X3, Cooperative Heart: Regular rate Lungs: Clear Abdomen: Normal bowel sounds Extremities: No clubbing Skin: No rashes, No breakdown Review of Systems Review of Systems Heart: denies chest pain Lung: denies soa Integument: denies rash, itching Assessment and Plan Assessmemt and Plan Assessment: 1. Hypokalemia 2. Lactic acidosis 3. Suicide attempt with Seroquel 4. Alcohol abuse 5. Hypothyroidism Plan: 1. Rx: Zoloft 50 mg #30 for depression 2. Rx: Seroquel 300mg #10 for sleep aid 3. Rx: Synthroid 225mg # 50 for hypothyroidism 4. D/C 1-to-1 5. Manolo to discharge' 6. Follow up at [facility] Problems Medical Problems: (1) Hypokalemia Status: Acute (2) Lactic acidosis Status: Acute (3) Suicide attempt Status: Acute Comment Review of Relevant I have reviewed the following items kirby (where applicable) has been applied. Labs Laboratory Tests Test 04/27/18 17:00 04/27/18 17:20 04/27/18 17:32 04/27/18 20:50 White Blood Count 7.0 x10^3/uL (4.0-11.0) Red Blood Count 4.40 x10^6/uL (3.50-5.40) Hemoglobin 12.8 g/dL (12.0-15.5) Hematocrit 39.0 % (36.0-47.0) Mean Corpuscular Volume 89 fL (79-100) Mean Corpuscular Hemoglobin 29 pg (25-35) Mean Corpuscular Hemoglobin Concent 33 g/dL (31-37) Red Cell Distribution Width 15.5 % (11.5-14.5) Platelet Count 240 x10^3/uL (140-400) Neutrophils (%) (Auto) 40 % (31-73) Lymphocytes (%) (Auto) 48 % (24-48) Monocytes (%) (Auto) 8 % (0-9) Eosinophils (%) (Auto) 3 % (0-3) Basophils (%) (Auto) 1 % (0-3) Neutrophils # (Auto) 2.8 x10^3uL (1.8-7.7) Lymphocytes # (Auto) 3.4 x10^3/uL (1.0-4.8) Monocytes # (Auto) 0.5 x10^3/uL (0.0-1.1) Eosinophils # (Auto) 0.2 x10^3/uL (0.0-0.7) Basophils # (Auto) 0.0 x10^3/uL (0.0-0.2) Prothrombin Time 12.8 SEC (11.7-14.0) Prothromb Time International Ratio 1.0 (0.8-1.1) Sodium Level 146 mmol/L (136-145) Potassium Level 2.7 mmol/L (3.5-5.1) Chloride Level 106 mmol/L (98-107) Carbon Dioxide Level 24 mmol/L (21-32) Anion Gap 16 (6-14) Blood Urea Nitrogen 10 mg/dL (7-20) Creatinine 0.9 mg/dL (0.6-1.0) Estimated GFR (Cockcroft-Gault) 70.5 BUN/Creatinine Ratio 11 (6-20) Glucose Level 136 mg/dL (70-99) Lactic Acid Level 4.2 mmol/L (0.4-2.0) 3.8 mmol/L (0.4-2.0) Calcium Level 8.3 mg/dL (8.5-10.1) Magnesium Level 2.3 mg/dL (1.8-2.4) Total Bilirubin 0.4 mg/dL (0.2-1.0) Aspartate Amino Transf (AST/SGOT) 54 U/L (15-37) Alanine Aminotransferase (ALT/SGPT) 123 U/L (14-59) Alkaline Phosphatase 110 U/L (46-116) Total Protein 7.0 g/dL (6.4-8.2) Albumin 3.5 g/dL (3.4-5.0) Albumin/Globulin Ratio 1.0 (1.0-1.7) Thyroid Stimulating Hormone (TSH) 2.701 uIU/mL (0.358-3.74) Salicylates Level < 2.8 mg/dL (2.8-20.0) Salicylate Last Dose Date Unk Salicylate Last Dose Time Unk Acetaminophen Level < 2 mcg/ml (10-30) Acetaminophen Last Dose Date Unk Acetaminophen Last Dose Time Unk Ethyl Alcohol Level 362 mg/dL (0-10) Urine Color Yellow Urine Clarity Clear Urine pH 6.5 Urine Specific [place] 1.010 Urine Protein Negative mg/dL (NEG-TRACE) Urine Glucose (UA) Negative mg/dL (NEG) Urine Ketones (Stick) Negative mg/dL (NEG) Urine Blood Negative (NEG) Urine Nitrite Negative (NEG) Urine Bilirubin Negative (NEG) Urine Urobilinogen Dipstick 0.2 mg/dL (0.2 mg/dL) Urine Leukocyte Esterase Negative (NEG) Urine RBC 0 /HPF (0-2) Urine WBC Occ /HPF (0-4) Urine Squamous Epithelial Cells Occ /LPF Urine Amorphous Sediment Present /HPF Urine Bacteria 0 /HPF (0-FEW) Urine Mucus Slight /LPF Urine Opiates Screen Neg (NEG) Urine Methadone Screen Neg (NEG) Urine Barbiturates Neg (NEG) Urine Phencyclidine Screen Neg (NEG) Urine Amphetamine/Methamphetamine Neg (NEG) Urine Benzodiazepines Screen Pos (NEG) Urine Cocaine Screen Neg (NEG) Urine Cannabinoids Screen Neg (NEG) Urine Ethyl Alcohol Pos (NEG) Bedside Urine HCG, Qualitative Hcg negative (Negative) Test 04/28/18 05:49 White Blood Count 7.1 x10^3/uL (4.0-11.0) Red Blood Count 3.52 x10^6/uL (3.50-5.40) Hemoglobin 10.5 g/dL (12.0-15.5) Hematocrit 31.3 % (36.0-47.0) Mean Corpuscular Volume 89 fL (79-100) Mean Corpuscular Hemoglobin 30 pg (25-35) Mean Corpuscular Hemoglobin Concent 34 g/dL (31-37) Red Cell Distribution Width 15.5 % (11.5-14.5) Platelet Count 200 x10^3/uL (140-400) Neutrophils (%) (Auto) 61 % (31-73) Lymphocytes (%) (Auto) 29 % (24-48) Monocytes (%) (Auto) 7 % (0-9) Eosinophils (%) (Auto) 3 % (0-3) Basophils (%) (Auto) 0 % (0-3) Neutrophils # (Auto) 4.3 x10^3uL (1.8-7.7) Lymphocytes # (Auto) 2.1 x10^3/uL (1.0-4.8) Monocytes # (Auto) 0.5 x10^3/uL (0.0-1.1) Eosinophils # (Auto) 0.2 x10^3/uL (0.0-0.7) Basophils # (Auto) 0.0 x10^3/uL (0.0-0.2) Sodium Level 146 mmol/L (136-145) Potassium Level 3.4 mmol/L (3.5-5.1) Chloride Level 110 mmol/L (98-107) Carbon Dioxide Level 23 mmol/L (21-32) Anion Gap 13 (6-14) Blood Urea Nitrogen 11 mg/dL (7-20) Creatinine 0.6 mg/dL (0.6-1.0) Estimated GFR (Cockcroft-Gault) 112.5 BUN/Creatinine Ratio 18 (6-20) Glucose Level 88 mg/dL (70-99) Calcium Level 7.6 mg/dL (8.5-10.1) Total Bilirubin 0.6 mg/dL (0.2-1.0) Aspartate Amino Transf (AST/SGOT) 48 U/L (15-37) Alanine Aminotransferase (ALT/SGPT) 97 U/L (14-59) Alkaline Phosphatase 96 U/L (46-116) Total Protein 5.8 g/dL (6.4-8.2) Albumin 2.7 g/dL (3.4-5.0) Albumin/Globulin Ratio 0.9 (1.0-1.7) Medications Current Medications Multivitamins 10 ml/Thiamine HCl 100 mg/Folic Acid 1 mg/Sodium Chloride 1,011.2 ml @ 1,000 mls/ hr Q1H IV Last administered on 04/27/18at 17:32; Start at 17:00; Stop 04/27/18 at 17:34; Status DC Sodium Chloride 1,000 ml @ 1,000 mls/hr 1X ONCE IV Last administered on at 16:40; Start 04/27/18 at 17:30; Stop 04/27/18 at 18:29; Status DC Potassium Chloride/Water 100 ml @ 100 mls/hr Q1H IV Last administered on at 23:00; Start 04/27/18 at 17:45; Stop 04/27/18 at 21:44; Status DC Sodium Chloride 1,000 ml @ 125 mls/hr 1X ONCE IV Last administered on at 18:14; Start 04/27/18 at 18:15; Stop 04/28/18 at 02:14; Status DC Ondansetron HCl (Zofran) 4 mg PRN Q8HRS PRN IV NAUSEA/VOMITING; Start 04/27/18 at 19:00; Stop 04/28/18 at 18:59; Status DC Sodium Chloride 1,000 ml @ 150 mls/hr Q6H40M IV Last administered on at 16:24; Start 04/27/18 at 19:00; Stop 04/28/18 at 18:59; Status DC Multivitamins 10 ml/Thiamine HCl 100 mg/Folic Acid 1 mg/Sodium Chloride 1,011.2 ml @ 100 mls/ hr DAILY IV Last administered on 04/29/18at 08:31; Start at 09:00; Stop 05/02/18 at 19:07 Lorazepam (Ativan) 4 mg PRN Q1HR PRN PO For CIWA 8-14; Start 04/28/18 at 02:45 Lorazepam (Ativan) 8 mg PRN Q1HR PRN PO For CIWA 15 or greater; Start 04/28/18 at 02:45 Lorazepam (Ativan) 2 mg PRN Q1HR PRN IV For CIWA 8-14 Last administered on 04/28at 10:42; Start 04/28/18 at 02:45 Lorazepam (Ativan) 4 mg PRN Q1HR PRN IV For CIWA 15 or greater Last administered on 04/28/18at 22:34; Start 04/28/18 at 02:45 Haloperidol Lactate (Haldol Inj) 5 mg 1X ONCE IVP Last administered on at 10:37; Start 04/29/18 at 10:30; Stop 04/29/18 at 10:31; Status DC Acetaminophen/ Hydrocodone Bitart (Lortab 5/325) 1 tab PRN Q4HRS PRN PO PAIN Last administered on 04/29/18at 10:37; Start 04/29/18 at 10:30 Haloperidol Lactate (Haldol Inj) 5 mg PRN Q8HRS PRN IVP AGITATION; Start at 10:30 Active Scripts Active Reported Topiramate 25 Mg Tablet 1 Tab PO DAILY Levothyroxine Sodium 200 Mcg Tablet 225 Mcg PO DAILYAC Zoloft (Sertraline Hcl) 100 Mg Tablet 1 Tab PO DAILY Zolpidem Tartrate 5 Mg Tablet 1 Tab PO QHS Vitals/I & O Vital Sign - Last 24 Hours 04/28/18 04/28/18 04/28/18 04/28/18 15:06 19:00 20:13 22:59 Temp 99.9 99.3 99.5 99.9 99.3 99.5 Pulse 119 107 104 Resp 20 20 22 B/P (MAP) 137/89 (105) 132/92 (105) 143/95 (111) Pulse Ox 98 100 98 O2 Delivery Room Air Room Air Room Air Room Air 04/29/18 04/29/18 04/29/18 04/29/18 03:00 07:00 08:00 10:37 Temp 99.1 99.1 Pulse 98 89 Resp 20 18 B/P (MAP) 131/85 (100) 121/80 (94) Pulse Ox 100 99 O2 Delivery Room Air Room Air Room Air Room Air 04/29/18 11:05 Temp 97.9 97.9 Pulse 97 Resp 16 B/P (MAP) 128/87 (101) Pulse Ox 93 O2 Delivery Room Air Intake and Output 04/28/18 04/28/18 04/29/18 15:01 23:01 07:01 Intake Total 0 ml Output Total 2000 ml 1400 ml Balance 0 ml -2000 ml -1400 ml APRIL WOODS III DO Apr 29, 2018 12:33
--- NOTE | 2018-04-29 14:31 | NUR ---
Discharge Note: ML MENA Discharge instructions and discharge home medications reviewed with Patient and a copy given. All questions have been answered and understanding verbalized. The following instructions and handouts were given: PATIENT GIVEN EDUCATION REGARDING NEW SCRIPTS. ALSO GIVEN FOLLOW UP DIRECTIONS WITH [facility]. Discontinued lines and drains: IV REMOVED PER PROTOCOL. Patient discharged HOME VIA CAB PASS.
== END 2018-04-29 14:15 | disposition home or self-care (01) | DRG 918 ==
LOC: ER 16:53 → OBSVTOIN 19:18 → 5 NORTH 19:18
PROVIDERS: ADMIT Internal Medicine; ATTEND Internal Medicine
DX: T43.592A Poisoning by other antipsychotics and neuroleptics, intentional self-harm, initial encounter (principal); E87.2 Acidosis; D64.9 Anemia, unspecified; E87.6 Hypokalemia; E89.0 Postprocedural hypothyroidism; F10.129 Alcohol abuse with intoxication, unspecified; F31.9 Bipolar disorder, unspecified; F43.10 Post-traumatic stress disorder, unspecified; F41.9 Anxiety disorder, unspecified; Z81.8 Family history of other mental and behavioral disorders; Z91.5 Personal history of self-harm; Y92.89 Other specified places as the place of occurrence of the external cause; Z90.49 Acquired absence of other specified parts of digestive tract; Z88.0 Allergy status to penicillin; Z88.8 Allergy status to other drugs, medicaments and biological substances
CPT/HCPCS: 36415; 80053; 80307; 80329; 81001; 81025; 83605; 83735; 84443; 85025; 85610; 93005; 96361; 96365; G0480; J1630; J2060; J3480; J7030; 99285-25; G0378

== ENCOUNTER 2018-05-01 23:49 | Emergency (ER) | payer SELFPAY ==
[~2018-05-01] VITALS: Ht 160 cm; Wt 68.0 kg
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
[2018-05-02] MEDS ORDERED: MULTIVIT INFUSN,ADULT 4,VIT K 10 ML, THIAMINE INJ 100 MG, FOLIC ACID INJ 1 MG in IV NOR... IV SCH (01:00)
[2018-05-02 01:04] LABS: BASO % 0 % (0-3); EOS # 0.2 x10^3/uL (0.0-0.7); EOS % 3 % (0-3); HEMATOCRIT 37.3 % (36.0-47.0); HEMOGLOBIN 12.5 g/dL (12.0-15.5); LYMPH # 2.1 x10^3/uL (1.0-4.8); LYMPH % 29 % (24-48); MEAN CORPUSCULAR HEMOGLOBIN 29 pg (25-35); MEAN CORPUSCULAR HGB CONC 33 g/dL (31-37); MEAN CORPUSCULAR VOLUME 88 fL (79-100); MONO # 0.4 x10^3/uL (0.0-1.1); MONO % 5 % (0-9); NEUT # 4.6 x10^3uL (1.8-7.7); NEUT % 63 % (31-73); PLATELET COUNT 256 x10^3/uL (140-400); RED BLOOD COUNT 4.23 x10^6/uL (3.50-5.40); RED CELL DISTRIBUTION WIDTH 15.4 % (11.5-14.5); WHITE BLOOD COUNT 7.3 x10^3/uL (4.0-11.0)
[2018-05-02 01:07] LABS: BILIRUBIN,URINE NEGATIVE (NEG); CLARITY,URINE CLOUDY; COLOR,URINE YELLOW; NITRITE,URINE NEGATIVE (NEG); PROTEIN,URINE NEGATIVE (NEG-TRACE)
[2018-05-02 01:11] LABS: BARBITURATES NEG (NEG); BENZODIAZEPINES POS (NEG); CANNABINOIDS NEG (NEG); COCAINE NEG (NEG); METHADONE NEG (NEG); OPIATES NEG (NEG); PHENCYCLIDINE NEG (NEG)
[2018-05-02 01:13] LABS: CALCIUM 8.5 mg/dL (8.5-10.1); CREATININE 0.6 mg/dL (0.6-1.0); GFR 112.5; POTASSIUM 3.6 mmol/L (3.5-5.1)
[2018-05-02 01:16] LABS: AMPHETAMINE/METHAMPHETAMINE NEG (NEG)
[2018-05-02 01:17] LABS: ACETAMIN < 2 mcg/ml (10-30); ETHANOL 262 mg/dL (0-10); SALIC < 2.8 mg/dL (2.8-20.0)
[2018-05-02 01:18] LABS: ALBUMIN 3.1 g/dL (3.4-5.0); DIRECT BILIRUBIN 0.1 mg/dL (0.0-0.2); MAGNESIUM 2.2 mg/dL (1.8-2.4); TOTAL BILIRUBIN 0.3 mg/dL (0.2-1.0); TOTAL PROTEIN 7.3 g/dL (6.4-8.2)
[2018-05-02 01:19] LABS: BACTERIA,URINE MODERATE /HPF (0-FEW); RBC,URINE 20-40 /HPF (0-2); SQUAMOUS EPITHELIAL CELL,UR MOD /LPF
[2018-05-02 02:10] LABS: U PREG PATIENT NEGATIVE (NEG)
--- NOTE | 2018-05-02 03:07 | RAD ---
CT head without contrast HISTORY: Occipital head injury. PQRS statement: CT scans at this facility use dose reduction including either automated exposure control, iterative reconstructions, and /or weight based radiation dosing via mA and kV modification when appropriate to reduce radiation dose to as low as reasonably achievable. TECHNIQUE: Noncontrast CT imaging of the head with coronal reconstructions was acquired. FINDINGS: No intracranial hemorrhage, mass, hydrocephalus, extra-axial fluid collections or infarction. Mild left lower occipital scalp soft tissue edema likely contusion no scalp hematoma. Maxillary sinus mucosal thickening. Chronic bilateral medial orbital wall blowout fractures containing extraconal fat. Opacification left frontal sinus. Mastoids, skull base, calvarium intact. IMPRESSION: No acute intracranial CT abnormality. Mild occipital scalp soft tissue edema. No scalp hematoma. No skull fracture. Electronically signed by: Silver Burnett MD (05/02/2018 3:03 AM) [facility] [id number]
[2018-05-02 03:30] VITALS: BP 108/63
[2018-05-02] MEDS ORDERED: CHLO25CA9 PO (03:38)
--- NOTE | 2018-05-02 07:44 | EKG ---
[facility] [address] [place] [address] Test Date: 2018-05-02 Test Time: 00:39:24 Pat Name: DEVIN MENA Department: Room: Gender: F [employer]: : 1980 Requested By: DENIA SHIPMAN Order Number: [id number] Reading MD: Measurements Intervals [place] Rate: 97 P: 90 [place]: 144 QRS: -18 QRSD: 88 T: 10 QT: 348 QTc: 446 Interpretive Statements SINUS RHYTHM LEFTWARD AXIS NO SPECIFIC ECG ABNORMALITIES RI6.01 No previous ECG available for comparison
== END 2018-05-02 04:57 | disposition home or self-care (01) ==
LOC: ER 23:49
DX: F10.229 Alcohol dependence with intoxication, unspecified (principal); Y90.8 Blood alcohol level of 240 mg/100 ml or more; R45.851 Suicidal ideations; F32.9 Major depressive disorder, single episode, unspecified; F41.9 Anxiety disorder, unspecified; E03.9 Hypothyroidism, unspecified; F17.210 Nicotine dependence, cigarettes, uncomplicated; Z90.49 Acquired absence of other specified parts of digestive tract; Z90.89 Acquired absence of other organs; Z88.0 Allergy status to penicillin; Z88.8 Allergy status to other drugs, medicaments and biological substances
CPT/HCPCS: 36415; 70450; 80048; 80076; 80307; 80329; 81001; 81025; 83735; 85025; 87086; 93005; 96365; 96366; 99284; G0480; G6039; J7030

== ENCOUNTER 2018-06-07 18:40 | Emergency (ER) | payer SELFPAY ==
[~2018-06-07 18:40] MED LIST changes: +CHLO25CA9 PO
== END 2018-06-07 20:27 | disposition left against medical advice (07) ==
LOC: ER 18:40
DX: F41.9 Anxiety disorder, unspecified (principal); Z53.21 Procedure and treatment not carried out due to patient leaving prior to being seen by health care provider

== ENCOUNTER 2018-07-12 10:47 | Emergency (ER) | payer SELFPAY ==
[~2018-07-12] VITALS: Ht 157.5 cm; Wt 70.3 kg
[2018-07-12] MEDS ORDERED: IV NORMAL SALINE 1000ML BAG 1,000 ML IV SCH (11:08)
[2018-07-12] MEDS ORDERED: FAMOTIDINE 20 MG/2 ML VIAL IVP ONE (11:15)
[2018-07-12 11:17] LABS: BASO # 0.1 x10^3/uL (0.0-0.2); BASO % 1 % (0-3); EOS % 1 % (0-3); HEMATOCRIT 39.3 % (36.0-47.0); HEMOGLOBIN 12.9 g/dL (12.0-15.5); LYMPH # 1.1 x10^3/uL (1.0-4.8); LYMPH % 22 % (24-48); MEAN CORPUSCULAR HEMOGLOBIN 29 pg (25-35); MEAN CORPUSCULAR HGB CONC 33 g/dL (31-37); MEAN CORPUSCULAR VOLUME 89 fL (79-100); MONO # 0.3 x10^3/uL (0.0-1.1); MONO % 6 % (0-9); NEUT # 3.5 x10^3uL (1.8-7.7); NEUT % 70 % (31-73); PLATELET COUNT 249 x10^3/uL (140-400); RED BLOOD COUNT 4.44 x10^6/uL (3.50-5.40); RED CELL DISTRIBUTION WIDTH 16.9 % (11.5-14.5); WHITE BLOOD COUNT 4.9 x10^3/uL (4.0-11.0)
[2018-07-12 11:19] LABS: BILIRUBIN,URINE NEGATIVE (NEG); CLARITY,URINE CLEAR; COLOR,URINE YELLOW; NITRITE,URINE NEGATIVE (NEG); PH,URINE 6.5; PROTEIN,URINE 30 mg/dL (NEG-TRACE)
[2018-07-12 11:23] LABS: BACTERIA,URINE MANY /HPF (0-FEW); RBC,URINE 0 /HPF (0-2); SQUAMOUS EPITHELIAL CELL,UR MANY /LPF
[2018-07-12 11:25] LABS: AMPHETAMINE/METHAMPHETAMINE NEG (NEG); BARBITURATES NEG (NEG); BENZODIAZEPINES NEG (NEG); CANNABINOIDS NEG (NEG); COCAINE NEG (NEG); METHADONE NEG (NEG); OPIATES NEG (NEG); PHENCYCLIDINE NEG (NEG)
[2018-07-12 11:32] LABS: ALBUMIN 3.5 g/dL (3.4-5.0); ALBUMIN/GLOBULIN RATIO 0.9 (1.0-1.7); CALCIUM 7.7 mg/dL (8.5-10.1); CREATININE 0.6 mg/dL (0.6-1.0); GFR 112.5; TOTAL BILIRUBIN 0.5 mg/dL (0.2-1.0); TOTAL PROTEIN 7.4 g/dL (6.4-8.2)
[2018-07-12 11:37] LABS: POTASSIUM 2.8 mmol/L (3.5-5.1)
[2018-07-12] MEDS ORDERED: POTASSIUM CHLORIDE 20 MEQ TABLET.ER. PO ONE (12:00)
[2018-07-12] MEDS ORDERED: fentaNYL PF VIAL 100 MCG/2 ML VIAL IV ONE (12:00)
--- NOTE | 2018-07-12 12:18 | PHYS DOC ---
Past Medical History Past Medical History: Anxiety, Bipolar, Depression, Hypothyroid, Other Additional Past Medical Histor: Thyroid disease;prior suicide attempt, PTSD Past Surgical History: Cholecystectomy, Tonsillectomy Additional Past Surgical Histo: Thyroidectomy; eye surgery, GASTRIC SLEEVE Alcohol Use: Heavy Drug Use: Benzodiazepine Adult General Chief Complaint Chief Complaint: NAUSEA/VOMITING/DIARRHA HPI HPI Patient is a 38 year old female who is in by EMS because of nausea and vomiting. Patient complaining of 8 episodes of vomiting and 3-4 episodes of diarrhea started this morning. Patient complaining of spotting of bright red blood in vomiting and diarrheal materia. Patient also complaining of lower abdominal cramping pain during episodes of diarrhea and rated her pain 8/10. Patient states she has history of alcoholism and for the last 1 week had at least 1 pint of vodka every day. Patient states she drank some alcohol last night but doesn't know how much she had and is concern for possible alcohol withdrawal. Patient denies suicidal or homicidal ideation and hallucination. Patient denies , urinary symptoms, fever and chills, chest pain or shortness of breath. Patient had sublingual Zofran given by EMS with improvement of her nausea. Review of Systems Review of Systems Constitutional: Denies fever or chills [] Eyes: Denies change in visual acuity, redness, or eye pain [] HENT: Denies nasal congestion or sore throat [] Respiratory: Denies cough or shortness of breath [] Cardiovascular: No additional information not addressed in HPI [] GI: Reports abdominal pain, nausea, vomiting, diarrhea [] : Denies dysuria or hematuria [] Musculoskeletal: Denies back pain or joint pain [] Integument: Denies rash or skin lesions [] Neurologic: Denies headache, focal weakness or sensory changes [] Endocrine: Denies polyuria or polydipsia [] All other systems were reviewed and found to be within normal limits, except as documented in this note. Current Medications Current Medications Current Medications Medications (Trade) Dose Ordered Sig/Mauricio Start Time Stop Time Status Last Admin Dose Admin Famotidine (Pepcid Vial) 20 mg 1X ONCE 07/12/18 11:15 07/12/18 11:16 DC 07/12/18 11:24 20 MG Fentanyl Citrate (Fentanyl 2ml Vial) 50 mcg 1X ONCE 07/12/18 12:00 07/12/18 12:02 DC 07/12/18 12:08 50 MCG Potassium Chloride (Klor-Con) 40 meq 1X ONCE 07/12/18 12:00 07/12/18 12:02 DC 07/12/18 12:07 40 MEQ Sodium Chloride 1,000 ml @ 1,000 mls/hr Q1H 07/12/18 11:08 07/12/18 12:07 DC 07/12/18 11:24 1,000 MLS/HR Allergies Allergies Allergies Coded Allergies Type Severity Reaction Last Updated Verified NSAIDS (Non-Steroidal Anti-Inflamma Allergy Intermediate 10/19/16 Yes Penicillins Allergy Intermediate 10/19/16 Yes Physical Exam Physical Exam Constitutional: Well developed, well nourished, mild distress, non-toxic appearance. [] HENT: Normocephalic, atraumatic, oropharynx moist, no oral exudates, nose normal. [] Eyes: PERRLA, EOMI, conjunctiva normal, no discharge. [] Neck: Normal range of motion, no tenderness, supple, no stridor. [] Cardiovascular:Heart rate regular rhythm, no murmur [] Lungs & Thorax: Bilateral breath sounds clear to auscultation [] Abdomen: Bowel sounds normal, soft, no tenderness, no masses, no pulsatile masses. [] Skin: Warm, dry, no erythema, no rash. [] Back: No tenderness, no CVA tenderness. [] Extremities: No tenderness, no cyanosis, no clubbing, ROM intact, no edema. [] Neurologic: Alert and oriented X 3, normal motor function, normal sensory function, no focal deficits noted. [] Psychologic: Affect normal, judgement normal, mood normal. [] Current Patient Data Vital Signs Vital Signs Date Time Temp Pulse Resp B/P (MAP) Pulse Ox O2 Delivery O2 Flow Rate FiO2 07/12/18 12:08 16 100 Room Air 07/12/18 10:48 98.6 95 157/107 (124) 98.6 Lab Values Laboratory Tests Test 07/12/18 10:48 07/12/18 10:55 07/12/18 11:00 Urine Collection Type Unknown Urine Color Yellow Urine Clarity Clear Urine pH 6.5 Urine Specific [place] 1.025 Urine Protein 30 mg/dL (NEG-TRACE) Urine Glucose (UA) Negative mg/dL (NEG) Urine Ketones (Stick) Negative mg/dL (NEG) Urine Blood Moderate (NEG) Urine Nitrite Negative (NEG) Urine Bilirubin Negative (NEG) Urine Urobilinogen Dipstick 1.0 mg/dL (0.2 mg/dL) Urine Leukocyte Esterase Negative (NEG) Urine RBC 0 /HPF (0-2) Urine WBC 5-10 /HPF (0-4) Urine Squamous Epithelial Cells Many /LPF Urine Bacteria Many /HPF (0-FEW) Urine Mucus Marked /LPF Urine Opiates Screen Neg (NEG) Urine Methadone Screen Neg (NEG) Urine Barbiturates Neg (NEG) Urine Phencyclidine Screen Neg (NEG) Urine Amphetamine/Methamphetamine Neg (NEG) Urine Benzodiazepines Screen Neg (NEG) Urine Cocaine Screen Neg (NEG) Urine Cannabinoids Screen Neg (NEG) Urine Ethyl Alcohol Pos (NEG) White Blood Count 4.9 x10^3/uL (4.0-11.0) Red Blood Count 4.44 x10^6/uL (3.50-5.40) Hemoglobin 12.9 g/dL (12.0-15.5) Hematocrit 39.3 % (36.0-47.0) Mean Corpuscular Volume 89 fL (79-100) Mean Corpuscular Hemoglobin 29 pg (25-35) Mean Corpuscular Hemoglobin Concent 33 g/dL (31-37) Red Cell Distribution Width 16.9 % (11.5-14.5) H Platelet Count 249 x10^3/uL (140-400) Neutrophils (%) (Auto) 70 % (31-73) Lymphocytes (%) (Auto) 22 % (24-48) L Monocytes (%) (Auto) 6 % (0-9) Eosinophils (%) (Auto) 1 % (0-3) Basophils (%) (Auto) 1 % (0-3) Neutrophils # (Auto) 3.5 x10^3uL (1.8-7.7) Lymphocytes # (Auto) 1.1 x10^3/uL (1.0-4.8) Monocytes # (Auto) 0.3 x10^3/uL (0.0-1.1) Eosinophils # (Auto) 0.0 x10^3/uL (0.0-0.7) Basophils # (Auto) 0.1 x10^3/uL (0.0-0.2) Sodium Level 140 mmol/L (136-145) Potassium Level 2.8 mmol/L (3.5-5.1) *L Chloride Level 101 mmol/L (98-107) Carbon Dioxide Level 27 mmol/L (21-32) Anion Gap 12 (6-14) Blood Urea Nitrogen 17 mg/dL (7-20) Creatinine 0.6 mg/dL (0.6-1.0) Estimated GFR (Cockcroft-Gault) 112.5 BUN/Creatinine Ratio 28 (6-20) H Glucose Level 115 mg/dL (70-99) H Calcium Level 7.7 mg/dL (8.5-10.1) L Total Bilirubin 0.5 mg/dL (0.2-1.0) Aspartate Amino Transferase (AST) 33 U/L (15-37) Alanine Aminotransferase (ALT) 22 U/L (14-59) Alkaline Phosphatase 100 U/L (46-116) Total Protein 7.4 g/dL (6.4-8.2) Albumin 3.5 g/dL (3.4-5.0) Albumin/Globulin Ratio 0.9 (1.0-1.7) L Lipase 74 U/L (73-393) Ethyl Alcohol Level 166 mg/dL (0-10) H POC Urine HCG, Qualitative Hcg negative (Negative) Laboratory Tests 07/12/18 10:55 Laboratory Tests 07/12/18 10:55 EKG EKG [] Radiology/Procedures Radiology/Procedures [] Course & Med Decision Making Course & Med Decision Making Pertinent Labs reviewed. (See chart for details) Evaluation of patient in ER showed 38-year-old female patient with history of alcohol abuse, bipolar disorder and anxiety brought in by EMS because of nausea and vomiting and history of recent alcohol intake. Patient had blood alcohol of 166 and did not have any episodes of vomiting. Patient complaining of abdominal pain improved with Pepcid and fentanyl. Patient did not have signs of fatigue. Patient had potassium of 2.8 and tolerated oral potassium and oral intake. Patient was advised to follow-up with her primary care physician and alcohol detox. Plan to give prescription for Zantac and potassium. Dragon Disclaimer Dragon Disclaimer This electronic medical record was generated, in whole or in part, using a voice recognition dictation system. Departure Departure Impression: Primary Impression: Acute alcoholic gastritis Additional Impressions: Alcohol abuse Bipolar disorder Hypokalemia Disposition: 01 HOME, SELF-CARE (at 1255) Condition: IMPROVED Referrals: NO PCP (PCP) Patient Instructions: Alcohol Problems, Alcoholic Gastritis-Brief, Hypokalemia Additional Instructions: Drink plenty of liquids Follow-up with your primary care physician in 3-5 days Return to ER if not getting better Scripts Ranitidine Hcl (ZANTAC) 150 Mg Tablet 1 TAB PO BID for dyspepsia, #30 TAB 0 Refills Prov: SUZY BAUMANN MD 07/12/18 Potassium Chloride (POTASSIUM CHLORIDE) 20 Meq Tablet.er 20 MEQ PO BID for 7 Days, #14 TAB.SR Prov: SUZY BAUMANN MD 07/12/18 Problem Qualifiers Primary Impression: Acute alcoholic gastritis Gastritis bleeding: without bleeding Qualified Codes: K29.20 - Alcoholic gastritis without bleeding Additional Impressions: Bipolar disorder Active/Remission status: remission status unspecified Qualified Codes: F31.9 - Bipolar disorder, unspecified SUZY BAUMANN MD Jul 12, 2018 12:18
[2018-07-12 12:45] VITALS: BP 156/107
[2018-07-12] MEDS ORDERED: RANI-376 PO (12:57)
[2018-07-12] MEDS ORDERED: POTA20TA82 PO (12:57)
== END 2018-07-12 13:05 | disposition home or self-care (01) ==
LOC: ER 10:47
DX: K29.20 Alcoholic gastritis without bleeding (principal); F31.9 Bipolar disorder, unspecified; E87.6 Hypokalemia; F10.20 Alcohol dependence, uncomplicated; Y90.6 Blood alcohol level of 120-199 mg/100 ml; F41.9 Anxiety disorder, unspecified; E89.0 Postprocedural hypothyroidism; Z90.89 Acquired absence of other organs; Z88.8 Allergy status to other drugs, medicaments and biological substances; Z88.0 Allergy status to penicillin
CPT/HCPCS: 36415; 80053; 80307; 81001; 81025; 83690; 85025; 87086; 96361; 96374; 96375; 99284; G0480; J3010; J3490; J7030; 99285-25

== ENCOUNTER 2019-03-29 13:56 | Emergency (ER) | payer OTHER ==
[~2019-03-29] VITALS: Ht 167.6 cm; Wt 70.3 kg
[~2019-03-29 13:56] MED LIST changes: +POTA20TA4 PO; +RANI-376 PO
[2019-03-29 15:07] VITALS: BP 188/116
[2019-03-29 15:34] LABS: BARBITURATES NEG (NEG); BENZODIAZEPINES NEG (NEG); CANNABINOIDS NEG (NEG); COCAINE NEG (NEG); METHADONE NEG (NEG); OPIATES POS (NEG); PHENCYCLIDINE NEG (NEG)
[2019-03-29 15:38] LABS: AMPHETAMINE/METHAMPHETAMINE NEG (NEG)
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
[2019-03-29] MEDS ORDERED: HYDROcodone/APAP 5/325MG 1 TAB TABLET PO ONE (17:00)
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
== END 2019-03-29 17:05 | disposition home or self-care (01) ==
LOC: ER 13:56
DX: S20.212A Contusion of left front wall of thorax, initial encounter (principal); M25.561 Pain in right knee; M25.562 Pain in left knee; F41.9 Anxiety disorder, unspecified; F32.9 Major depressive disorder, single episode, unspecified; E03.9 Hypothyroidism, unspecified; F13.20 Sedative, hypnotic or anxiolytic dependence, uncomplicated; F10.10 Alcohol abuse, uncomplicated; Z90.89 Acquired absence of other organs; Z90.49 Acquired absence of other specified parts of digestive tract; Z98.890 Other specified postprocedural states; Z88.6 Allergy status to analgesic agent; Z88.0 Allergy status to penicillin; V89.2XXA Person injured in unspecified motor-vehicle accident, traffic, initial encounter; Y93.89 Activity, other specified; Y92.413 State road as the place of occurrence of the external cause; Y99.8 Other external cause status
CPT/HCPCS: 71250; 73562; 80307; 81025; 99285

== ENCOUNTER 2019-12-09 06:11 | Emergency (ER) | payer OTHER ==
[~2019-12-09] VITALS: Ht 154.9 cm; Wt 80.0 kg
--- NOTE | 2019-12-09 06:34 | PHYS DOC ---
Past Medical History Past Medical History: Anxiety, Bipolar, Depression, Hypothyroid, Other Additional Past Medical Histor: Thyroid disease;prior suicide attempt, PTSD Past Surgical History: Cholecystectomy, Tonsillectomy Additional Past Surgical Histo: Thyroidectomy; eye surgery, GASTRIC SLEEVE Smoking Status: Current Every Day Smoker Alcohol Use: Heavy Drug Use: Benzodiazepine General Adult EDM: Chief Complaint: ALCOHOL INTOXICATION HPI: HPI: Patient is a 39 year old female who arrives via EMS with a chief complaint of tremulousness and anxiety. Patient states she has a history of alcohol abuse and was sober for 18 months and started working 4 days ago. Last drink was last night and she says she was drinking 1 beer every 3 hours. Patient feels like he is very have a seizure and is very anxious and tremulous. Patient says she is got diffuse body pain nausea vomiting and some loose stools. No fever cough. No shortness of breath. Review of Systems: Review of Systems: Constitutional: Denies fever or chills. [] Eyes: Denies change in visual acuity. [] HENT: Denies nasal congestion or sore throat. [] Respiratory: Denies cough or shortness of breath. [] Cardiovascular: Denies chest pain or edema. [] GI: Complains of diffuse abdominal pain nausea vomiting and diarrhea : Denies dysuria. [] Musculoskeletal: Complains of diffuse myalgias Integument: Denies rash. [] Neurologic: Denies headache, focal weakness or sensory changes. [] Endocrine: Denies polyuria or polydipsia. [] Lymphatic: Denies swollen glands. [] Psychiatric: Denies depression or anxiety. [] Heart Score: Risk Factors: Risk Factors: DM, Current or recent (<one month) smoker, HTN, HLP, family history of CAD, obesity. Risk Scores: Score 0 - 3: 2.5% MACE over next 6 weeks - Discharge Home Score 4 - 6: 20.3% MACE over next 6 weeks - Admit for Clinical Observation Score 7 - 10: 72.7% MACE over next 6 weeks - Early Invasive Strategies Current Medications: Current Medications Medications (Trade) Dose Ordered Sig/Mauricio Start Time Stop Time Status Last Admin Dose Admin Multivitamins 10 ml/Thiamine HCl 100 mg/Folic Acid 1 mg/Sodium Chloride 1,011.2 ml @ 1,000.088 mls/hr 1X ONCE 12/09/19 07:00 12/09/19 08:00 Allergies: Allergies: Allergies Coded Allergies Type Severity Reaction Last Updated Verified NSAIDS (Non-Steroidal Anti-Inflamma Allergy Intermediate 10/19/16 Yes Penicillins Allergy Intermediate 10/19/16 Yes Physical Exam: PE: Constitutional: Well developed, well nourished, anxious HENT: Normocephalic, atraumatic, bilateral external ears normal, oropharynx moist, no oral exudates, nose normal. [] Eyes: PERRLA, EOMI, conjunctiva normal, no discharge. [] Neck: Normal range of motion, no tenderness, supple, no stridor. [] Cardiovascular:Heart rate regular rhythm, peripheral pulses intact, cap refill brisk Lungs & Thorax: Bilateral breath sounds clear, no respiratory distress Abdomen: Soft with mild diffuse tenderness no guarding or rebound Skin: Warm, dry, no erythema, no rash. [] Back: No tenderness, no CVA tenderness. [] Extremities: No tenderness, no cyanosis, no clubbing, ROM intact, no edema. [] Neurologic: Alert and oriented X 3, normal motor function, normal sensory function, no focal deficits noted. [] Psychologic: Anxious Current Patient Data: Labs: Laboratory Tests Test 12/09/19 06:41 12/09/19 07:13 White Blood Count 10.7 x10^3/uL Red Blood Count 4.24 x10^6/uL Hemoglobin 13.4 g/dL Hematocrit 40.3 % Mean Corpuscular Volume 95 fL Mean Corpuscular Hemoglobin 32 pg Mean Corpuscular Hemoglobin Concent 33 g/dL Red Cell Distribution Width 13.9 % Platelet Count 397 x10^3/uL Neutrophils (%) (Auto) 83 % Lymphocytes (%) (Auto) 11 % Monocytes (%) (Auto) 5 % Eosinophils (%) (Auto) 0 % Basophils (%) (Auto) 1 % Neutrophils # (Auto) 8.8 x10^3/uL Lymphocytes # (Auto) 1.2 x10^3/uL Monocytes # (Auto) 0.5 x10^3/uL Eosinophils # (Auto) 0.0 x10^3/uL Basophils # (Auto) 0.1 x10^3/uL Maternal Serum HCG Beta Subunit 1 mIU/mL Ethyl Alcohol Level 183 mg/dL Sodium Level 144 mmol/L Potassium Level 3.8 mmol/L Chloride Level 106 mmol/L Carbon Dioxide Level 22 mmol/L Anion Gap 16 Blood Urea Nitrogen 7 mg/dL Creatinine 0.6 mg/dL Estimated GFR (Cockcroft-Gault) 111.9 BUN/Creatinine Ratio 12 Glucose Level 105 mg/dL Calcium Level 8.1 mg/dL Total Bilirubin 0.4 mg/dL Aspartate Amino Transf (AST/SGOT) 27 U/L Alanine Aminotransferase (ALT/SGPT) 40 U/L Alkaline Phosphatase 158 U/L Total Protein 7.3 g/dL Albumin 3.4 g/dL Albumin/Globulin Ratio 0.9 Lipase 69 U/L Current Medications Medications (Trade) Dose Ordered Sig/Mauricio Route PRN Reason Start Time Stop Time Status Last Admin Dose Admin Multivitamins 10 ml/Thiamine HCl 100 mg/Folic Acid 1 mg/Sodium Chloride 1,011.2 ml @ 1,000.088 mls/hr 1X ONCE IV 12/09/19 07:00 12/09/19 08:00 DC 12/09/19 06:44 Lorazepam (Ativan Inj) 2 mg 1X ONCE IVP 12/09/19 07:00 12/09/19 07:01 DC 12/09/19 06:58 Ondansetron HCl (Zofran) 4 mg 1X ONCE IVP 12/09/19 07:00 12/09/19 07:01 DC 12/09/19 06:58 Chlordiazepoxide (Librium) 25 mg 1X ONCE PO 12/09/19 08:45 12/09/19 08:46 DC 12/09/19 08:48 Vital Signs: Vital Signs Date Time Temp Pulse Resp B/P (MAP) Pulse Ox O2 Delivery O2 Flow Rate FiO2 12/09/19 06:46 97.5 97 20 139/89 (106) 99 Room Air 97.5 EKG: EKG: [] Radiology/Procedures: Radiology/Procedures: [] Course & Med Decision Making: Course & Med Decision Making Pertinent Labs and Imaging studies reviewed. (See chart for details) [] 39-year-old female presents with alcohol intoxication and anxiety due to possible withdrawal. Patient found to have alcohol level in the 180 range. Rest of her laboratory evaluation is unremarkable. I discussed with patient options versus outpatient versus inpatient detox and she feels like she has sufficient resources as an outpatient and declines to see our behavioral health team. Patient will get a prescription for a Librium taper. Patient otherwise stable. Dragon Disclaimer: Dragon Disclaimer: This electronic medical record was generated, in whole or in part, using a voice recognition dictation system. Departure Departure Impression: Primary Impression: Alcohol intoxication Disposition: 01 HOME, SELF-CARE Condition: STABLE Referrals: NO PCP (PCP) pcp 2-3 days [facility] Patient Instructions: Alcohol Intoxication Additional Instructions: EMERGENCY DEPARTMENT GENERAL DISCHARGE INSTRUCTIONS THANK YOU for coming to [facility] Emergency Department (ED) today and trusting us with your care. We trust that you had a positive experience in our Emergency Department. If you wish to speak to the department Management you can contact the emergency department technician at . YOUR FOLLOW UP INSTRUCTIONS ARE FOLLOWS: Do you have a private doctor? If you do not have a private doctor, please ask for a resource list of physicians or clinics that may be able to assist you with follow up care. The Emergency Physician has interpreted your x-rays. The X-ray specialist will also review them. If there is a change in the findings you will be notified in 48 hours when at all possible. A lab test or lab culture may have been done, your results will be reviewed and you will be notified if you need a change in treatment. ADDITIONAL INSTRUCTIONS AND INFORMATION Your care today has been supervised by a physician who is specially trained in emergency care. Many problems require more than one evaluation for a complete diagnosis and treatment. We recommend that you schedule your follow up appointment as recommended to ensure complete treatment of your illness or injury. If you are unable to obtain follow up care and continue to have a problem, or if your condition worsens we recommend that you return to the ED. We are not able to safely determine your condition over the phone nor are we able to give sound medical advice over the phone. For these safety reasons, if you call for medical advice we will ask you to come to the ED for further evaluation If you have any questions regarding these discharge instructions please call the ED at . SAFETY INFORMATION In the interest of safety, wellness, and injury prevention; we encourage you to wear your seatbelt, if you smoke; quit smoking, and we encourage your family to use protective helmet for bicycling and other sporting events that present an increased risk for head injury. IF YOUR SYMPTOMS WORSEN OR NEW SYMPTOMS DEVELOP, OR YOU HAVE CONCERNS ABOUT YOUR CONDITION; OR IF YOUR CONDITION WORSENS WHILE YOU ARE WAITING FOR YOUR FOLLOW UP APPOINTMENT; EITHER CONTACT YOUR PRIMARY CARE DOCTOR, THE PHYSICIAN WHOSE NAME AND NUMBER YOU WERE GIVEN, OR RETURN TO THE ED IMMEDIATELY. Scripts Chlordiazepoxide Hcl (CHLORDIAZEPOXIDE HCL) 25 Mg Capsule 25 MG PO Q6HRS, #16 CAP 50 mg po every 6 hours for 4 doses and then 25 mg po every 6 hours for 8 doses Prov: KARINE FRIED MD 12/09/19 Justicifation of Admission Dx: Justifications for Admission: Justification of Admission Dx: N/A KARINE FIRED MD Dec 09, 2019 06:34
[2019-12-09 06:54] LABS: BASO # 0.1 x10^3/uL (0.0-0.2); BASO % 1 % (0-3); EOS % 0 % (0-3); HEMATOCRIT 40.3 % (36.0-47.0); HEMOGLOBIN 13.4 g/dL (12.0-15.5); LYMPH # 1.2 x10^3/uL (1.0-4.8); LYMPH % 11 % (24-48); MEAN CORPUSCULAR HEMOGLOBIN 32 pg (25-35); MEAN CORPUSCULAR HGB CONC 33 g/dL (31-37); MEAN CORPUSCULAR VOLUME 95 fL (79-100); MONO # 0.5 x10^3/uL (0.0-1.1); MONO % 5 % (0-9); NEUT # 8.8 x10^3/uL (1.8-7.7); NEUT % 83 % (31-73); PLATELET COUNT 397 x10^3/uL (140-400); RED BLOOD COUNT 4.24 x10^6/uL (3.50-5.40); RED CELL DISTRIBUTION WIDTH 13.9 % (11.5-14.5); WHITE BLOOD COUNT 10.7 x10^3/uL (4.0-11.0)
[2019-12-09] MEDS ORDERED: ONDANSETRON PF 4 MG/2 ML VIAL. IVP ONE (07:00)
[2019-12-09] MEDS ORDERED: MULTIVIT INFUSN,ADULT 4,VIT K 10 ML, THIAMINE INJ 100 MG, FOLIC ACID INJ 1 MG in IV NOR... IV ONE (07:00)
[2019-12-09 07:31] LABS: CALCIUM 8.1 mg/dL (8.5-10.1); CREATININE 0.6 mg/dL (0.6-1.0); GFR 111.9; POTASSIUM 3.8 mmol/L (3.5-5.1)
[2019-12-09 07:37] LABS: ALBUMIN 3.4 g/dL (3.4-5.0); ALBUMIN/GLOBULIN RATIO 0.9 (1.0-1.7); TOTAL BILIRUBIN 0.4 mg/dL (0.2-1.0); TOTAL PROTEIN 7.3 g/dL (6.4-8.2)
[2019-12-09] MEDS ORDERED: CHLO25CA9 PO (08:05)
[2019-12-09 08:44] VITALS: BP 118/80
[2019-12-09] MEDS ORDERED: chlordiazePOXIDE HCL 25 MG CAPSULE PO ONE (08:45)
== END 2019-12-09 09:30 | disposition home or self-care (01) ==
LOC: ER 06:11
DX: F10.229 Alcohol dependence with intoxication, unspecified (principal); Y90.6 Blood alcohol level of 120-199 mg/100 ml; R11.2 Nausea with vomiting, unspecified; R19.7 Diarrhea, unspecified; F31.9 Bipolar disorder, unspecified; F41.9 Anxiety disorder, unspecified; E03.9 Hypothyroidism, unspecified; F43.10 Post-traumatic stress disorder, unspecified; Z90.49 Acquired absence of other specified parts of digestive tract; F17.200 Nicotine dependence, unspecified, uncomplicated; Z88.0 Allergy status to penicillin; Z88.6 Allergy status to analgesic agent
CPT/HCPCS: 36415; 80053; 83690; 84702; 85025; 96365; 96366; 96375; 99285; G0480; J2060; J2405; J3411; J3490; J7030

== ENCOUNTER 2020-02-02 13:50 | Emergency (ER) | payer SELFPAY ==
[~2020-02-02] VITALS: Ht 172.7 cm; Wt 90.9 kg
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
[2020-02-02 14:47] LABS: BILIRUBIN,URINE NEGATIVE (NEG); CLARITY,URINE CLEAR; NITRITE,URINE NEGATIVE (NEG); PROTEIN,URINE NEGATIVE (NEG-TRACE); UROBILINOGEN,URINE 0.2 mg/dL (0.2 mg/dL)
[2020-02-02 14:53] LABS: COLOR,URINE STRAW
[2020-02-02 14:54] LABS: BACTERIA,URINE MODERATE /HPF (0-FEW)
[2020-02-02 14:55] LABS: RBC,URINE 0 /HPF (0-2); WBC,URINE 0 /HPF (0-4)
--- NOTE | 2020-02-02 15:08 | RAD ---
EXAM: Head and cervical spine CT without contrast. HISTORY: Trauma. TECHNIQUE: Computed tomographic images of the head and cervical spine were obtained without contrast. *One or more of the following individualized dose reduction techniques were utilized for this examination: 1. Automated exposure control. 2. Adjustment of the mA and/or kV according to patient size. 3. Use of iterative reconstruction technique. COMPARISON: 05/02/2018. FINDINGS: Head: There is no acute hemorrhage. There is no mass effect or midline shift. There is no hydrocephalus. The zarco-white matter differential pattern is intact. There is no suspicious calvarial lesion. There are bilateral chronic appearing lamina papyracea fractures. There is maxillary sinus because of thickening. The mastoid air cells are clear. There is no suspicious calvarial lesion. Cervical spine: There is mild cervical kyphosis. There is no listhesis. The vertebral bodies are normal in height and the disc spaces are preserved. There is no suspicious osseous lesion. There is no significant cervical foraminal or central canal stenosis. The thyroid is surgically absent. The lung apices are unremarkable. The airways midline. There are symmetrically prominent bilateral neck lymph nodes. These are likely physiologic or reactive in etiology. IMPRESSION: No acute intracranial finding or evidence of acute cervical spine trauma. Electronically signed by: Makayla Luz MD (02/02/2020 3:05 PM) [id number]
[2020-02-02 15:27] LABS: AMPHETAMINE/METHAMPHETAMINE NEG (NEG); BARBITURATES NEG (NEG); BENZODIAZEPINES POS (NEG); CANNABINOIDS NEG (NEG); COCAINE NEG (NEG); METHADONE NEG (NEG); OPIATES NEG (NEG); PHENCYCLIDINE NEG (NEG)
[2020-02-02] MEDS ORDERED: HYDROmorphone 2 MG/ML VIAL IM ONE (15:45)
[2020-02-02] MEDS ORDERED: KETOROLAC 30 MG/ML VIAL. IM ONE (15:45)
[2020-02-02 16:00] VITALS: BP 114/80
== END 2020-02-02 16:50 | disposition short-term general hospital (02) ==
LOC: EEVIPCON 13:50 → ER 13:50
DX: S09.8XXA Other specified injuries of head, initial encounter (principal); T76.21XA Adult sexual abuse, suspected, initial encounter; R47.81 Slurred speech; F17.200 Nicotine dependence, unspecified, uncomplicated; F10.10 Alcohol abuse, uncomplicated; F19.90 Other psychoactive substance use, unspecified, uncomplicated; Z90.49 Acquired absence of other specified parts of digestive tract; Z90.89 Acquired absence of other organs; Z98.890 Other specified postprocedural states; Y08.89XA Assault by other specified means, initial encounter; Y93.89 Activity, other specified; Y92.89 Other specified places as the place of occurrence of the external cause; Y99.8 Other external cause status
CPT/HCPCS: 70450; 72125; 80307; 81001; 81025; 87086; 96372; 99285; J1170